=== PATIENT | male | born 1975 ===

== ENCOUNTER 2017-07-08 15:44 | Inpatient (IN) | payer OTHER ==
[2017-07-08] MEDS ORDERED: Morphine 4 mg/ml ISec IVP STA (16:02)
--- NOTE | 2017-07-08 16:07 | ED PDOC ---
Arrival/HPI - General Chief Complaint: Chest Pain Time Seen by Provider: 07/08/17 15:51 - History of Present Illness Narrative History of Present Illness (Text): 42 y/o M c PMHx pancreatitis p/w chest pain radiating to the back x 4 hours. Pain is severe, associated with nausea. Radiates to back. Constant. Patient states pain is similar to previous pancreatitis. Patient denies dyspnea or diaphoresis. Smokes PPD. Past Medical History - Infectious Disease Hx of Infectious Diseases: None - Psychiatric Hx Substance Use: No - Anesthesia Hx Anesthesia: No Family/Social History Family/Social History: No Known Family HX Smoking Status: Heavy Smoker > 10 Cigarettes Daily Hx Alcohol Use: Yes Frequency of alcohol use: Socially Hx Substance Use: No Substance used: marijuana Allergies/Home Meds Allergies/Adverse Reactions: Allergies No Known Allergies Allergy (Verified 07/08/17 15:59) Home Medications: Home Meds Medication Instructions Recorded Confirmed No Known Home Med 07/08/17 07/08/17 Review of Systems - Physician Review All systems were reviewed & negative as marked: Yes - Review of Systems Constitutional: absent: Fevers Respiratory: absent: SOB Physical Exam - Physical Exam Narrative Physical Exam (Text): Constitutional: Appears uncomfortable. Head: Normocephalic. Atraumatic. Eyes: PERRL. ENT: Moist mucous membranes. Neck: Supple. Cardiovascular: Regular rate. Chest: No tenderness. Respiratory: Clear to auscultation bilaterally. GI: Epigastric tenderness. Nondistended. Back: No CVA tenderness. No midline tenderness. Musculoskeletal: No tenderness or swelling of extremities. Skin: No rash. Neurologic: Alert, no focal deficit. Vital Signs Temp Pulse Resp BP Pulse Ox 07/08/17 16:22 105 H 21 132/91 H 100 07/08/17 15:53 98.0 F 90 18 129/92 H 100 Medical Decision Making ED Course and Treatment: EKG shows sinus rhythm, 90 bpm, Q waves anteriorly, prominent T waves in same, ST elevations Vi to V3, ST depressions in III, aVF. Patient's EKG concerning for STEMI, also considering dissection. Discussed case with Interventionalist integration analyst Dr. Richey who states he will take patient to cath. Patient will require dissection study first to rule out dissection. Morpine, Zofran administered initially. Heparin/aspirin withheld pending CT angio result. Patient admitted to mine laborer prior to CT angio result. - Lab Interpretations Lab Results: 07/08/17 16:00 07/08/17 16:00 Lab Results 07/08/17 16:00: Sodium 139, Potassium 3.8, Chloride 101, Carbon Dioxide 25, Anion Gap 17, BUN 9, Creatinine 0.9, Est GFR ( Amer) > 60, Est GFR (Non- Af Amer) > 60, Random Glucose 151 H, Calcium 9.9, Total Bilirubin 0.8, AST 35, ALT 35, Alkaline Phosphatase 71, Lactate Dehydrogenase 534, Total Creatine Kinase 103, Troponin I 0.08, Total Protein 8.2, Albumin 4.6, Globulin 3.6, Albumin/Globulin Ratio 1.3, Amylase 72, Lipase 100 07/08/17 16:00: PT 11.0, INR 1.01, APTT 26.4 07/08/17 16:00: WBC 16.8 H, RBC 4.64, Hgb 16.3, Hct 47.6, MCV 102.6, MCH 35.1 H , MCHC 34.2, RDW 12.3, Plt Count 268, MPV 9.6, Gran % 79.9 H, Lymph % (Auto) 14.6 L, [place] % (Auto) 4.6, Eos % (Auto) 0.7 L, Baso % (Auto) 0.2, Gran # 13.41 H , Lymph # 2.5, [place] # 0.8 H, Eos # 0.1, Baso # 0.04 07/08/17 15:34: Blood Type Pending, Antibody Screen Pending, BBK History Checked No verified bt - RAD Interpretation Radiology Orders: 07/08/17 16:03 ANGIOGRAPHY DISECTION PROTOCOL [CT] Stat 07/08/17 16:07 CHEST PORTABLE [RAD] Stat - Medication Orders Current Medication Orders: Discontinued Medications Morphine Sulfate (Morphine) 4 mg IVP STAT STA Stop: 07/08/17 16:03 Last Admin: 07/08/17 16:22 Dose: 4 mg KURTIS Pain Assessment Document 07/08/17 16:22 MS (Rec: 07/08/17 16:22 MS [id number]) Pain Reassessment Is this a pain reassessment? No Sleep Is patient sleeping during reassessment? No Presence of Pain Presence of Pain Yes Pain Scale Used Pain Scale Used Numeric Location Upper or Lower Upper Pain Location Body Site Chest Description Description Constant Intensity of Pain at present 10 Pain Behavior Moaning Crying Guarding Alleviating Factors/Management Medication Techniques IVP Administration Document 07/08/17 16:22 MS (Rec: 07/08/17 16:22 MS [id number]) Charges for Administration # of IVP Administrations 1 Ondansetron HCl (Zofran Inj) 8 mg IVP STAT STA Stop: 07/08/17 16:03 Last Admin: 07/08/17 16:23 Dose: 8 mg IVP Administration Document 07/08/17 16:23 MS (Rec: 07/08/17 16:23 MS [id number]) Charges for Administration # of IVP Administrations 1 Disposition/Present on Arrival - Present on Arrival Any Indicators Present on Arrival: No History of DVT/PE: No History of Uncontrolled Diabetes: No Urinary Catheter: No History of Decub. Ulcer: No History Surgical Site Infection Following: None - Disposition Have Diagnosis and Disposition been Completed?: Yes Diagnosis: Chest pain Disposition: HOSPITALIZED Disposition Time: 16:34 Patient Plan: Admission Condition: GUARDED
[2017-07-08 16:11] LABS: BASO # 0.04 K/mm3 (0.0-2.0); BASO % 0.2 % (0.0-3.0); EOS # 0.1 (0.0-0.7); EOS % 0.7 % (1.5-5.0); GRAN # 13.41 (1.4-6.5); GRAN % 79.9 % (50.0-68.0); HEMATOCRIT 47.6 % (42.0-52.0); LYMPH # 2.5 (1.2-3.4); LYMPH % 14.6 % (22.0-35.0); MEAN CELL VOLUME 102.6 fl (80.0-105.0); MEAN CORPUSCULAR HEMOGLOBIN 35.1 pg (25.0-35.0); MEAN CORPUSCULAR HGB CONC 34.2 g/dl (31.0-37.0); MEAN PLATELET VOLUME 9.6 fl (7.0-11.0); MONO # 0.8 (0.1-0.6); MONO % 4.6 % (1.0-6.0); RED CELL DISTRIBUTION WIDTH 12.3 % (11.5-14.5); WHITE BLOOD COUNT 16.8 10^3/ul (4.5-11.0)
[2017-07-08 16:19] LABS: ALB/GLOB RATIO 1.3 (1.1-1.8); ALKALINE PHOSPHATASE 71 U/L (38-126); ALT/SGPT 35 U/L (7-56); AMYLASE 72 U/L (35-125); AST/SGOT 35 U/L (17-59); BILIRUBIN,TOTAL 0.8 mg/dL (0.2-1.3); BLOOD UREA NITROGEN 9 mg/dL (7-21); CALCIUM 9.9 mg/dL (8.4-10.5); CARBON DIOXIDE 25 mmol/L (21-33); CHLORIDE 101 mmol/L (98-107); GFR AFRICAN-AMERICAN > 60; GLUCOSE,RANDOM 151 mg/dL (70-110); INR 1.01 (0.93-1.08); LIPASE 100 U/L (23-300); PARTIAL THROMBOPLASTIN TIME 26.4 Seconds (25.1-36.5); POTASSIUM 3.8 mmol/L (3.6-5.0); SODIUM 139 mmol/L (132-148); TOTAL PROTEIN 8.2 g/dL (5.8-8.3)
[2017-07-08] MEDS ORDERED: Iohexol 350mgl/ml 50 ML ONE (16:27)
[2017-07-08] MEDS ORDERED: Lidocaine 2% Inj (20ml) ONE (16:27)
[2017-07-08] MEDS ORDERED: Nitroglycerin 50mg in D5W 0 MG/0 ML BOTTLE IV ONE (16:28)
[2017-07-08] MEDS ORDERED: Iodixanol 320 MG/ML 100 ML BOTTLE IV ONE (16:28)
[2017-07-08] MEDS ORDERED: Iodixanol 320 MG/ML 200 ML BOTTLE IV ONE (16:28)
[2017-07-08 16:29] LABS: TROPONIN I 0.08 ng/mL
[2017-07-08] MEDS ORDERED: Midazolam 2 MG/2 ML VIAL ONE (16:49)
[2017-07-08] MEDS ORDERED: Morphine 2 mg/ml ISec IVP STA (16:53)
[2017-07-08] MEDS ORDERED: Morphine 2 mg/ml ISec ONE (16:54)
--- NOTE | 2017-07-08 16:54 | CT ---
PROCEDURE: CT Angiography Chest, Abdomen and Pelvis with and without intravenous contrast HISTORY: chest/epigastric pain radiating to back COMPARISON: None. TECHNIQUE: Contiguous axial images of the chest, abdomen and pelvis were obtained in the phase of aortic enhancement. A noncontrast enhanced CT of the chest was also obtained to evaluate for possible intramural thrombus. Coronal and sagittal reformats were generated. IV dose administered: 135 cc of Omni 350 Radiation dose: Total exam DLP = 1614 mGy-cm. This CT exam was performed using one or more of the following dose reduction techniques: Automated exposure control, adjustment of the mA and/or kV according to patient size, and/or use of iterative reconstruction technique. FINDINGS: CT ANGIOGRAPHY OF THE CHEST WITH & WITHOUT CONTRAST: AORTA (CHEST AND ABDOMEN): The thoracic and abdominal aorta are unremarkable, without aneurysm, dissection or rupture. No intramural thrombus identified in the thoracic aorta on the non-contrast ct of the chest. The celiac axis, superior mesenteric artery, inferior mesenteric artery and the renal arteries are widely patent. The pelvic arteries are unremarkable. LUNGS: Clear. No nodule, mass or consolidation. MEDIASTINUM: Unremarkable. Normal caliber aorta and pulmonary arterial trunk. No aortic dissection. Normal size heart. LYMPH NODES: Unremarkable. PLEURA: Unremarkable. No pneumothorax. No pleural fluid. BONES: Unremarkable. OTHER FINDINGS: None. CT ANGIOGRAPHY OF THE ABDOMEN AND PELVIS WITH CONTRAST: LIVER: Unremarkable. No gross lesion or ductal dilatation. GALLBLADDER AND BILE DUCTS: Unremarkable. PANCREAS: Unremarkable. No gross lesion or ductal dilatation. SPLEEN: Unremarkable. ADRENALS: Unremarkable. No mass. KIDNEYS AND URETERS: Unremarkable. No hydronephrosis. No solid mass. VASCULATURE: Unremarkable. No aortic aneurysm. STOMACH AND BOWEL: Unremarkable. No obstruction. No gross mural thickening. APPENDIX: Normal appendix. PERITONEUM: Unremarkable. No free fluid. No free air. LYMPH NODES: Unremarkable. No enlarged lymph nodes. BLADDER: Unremarkable. REPRODUCTIVE: Unremarkable. BONES: No acute fracture. OTHER FINDINGS: None. IMPRESSION: Negative study
--- NOTE | 2017-07-08 17:03 | RAD ---
HISTORY: code heart COMPARISON: No prior. FINDINGS: LUNGS: No active pulmonary disease. PLEURA: No significant pleural effusion identified, no pneumothorax apparent. CARDIOVASCULAR: Normal. OSSEOUS STRUCTURES: No significant abnormalities. VISUALIZED UPPER ABDOMEN: Normal. OTHER FINDINGS: None. IMPRESSION: No active disease.
--- NOTE | 2017-07-08 17:18 | CP.PCM.PN ---
<Hari Juarez - Last Filed: 07/08/17 17:11> Subjective - Date & Time of Evaluation Date of Evaluation: 07/08/17 Time of Evaluation: 16:04 - Subjective Subjective: Code Heart Note - Abdi Juarez PGY2 Code Heart called overhead at 4:00pm. Responded promptly to emergency room bed 13. Patient is a 42yo male with history of pancreatitis that presented c/o chest pain radiating to the back for the past 4 hours. He was immediately taken to radiology for CT Angiography to rule out dissection. EKG was reviewed and revealed ST elevations in V1-V3. Patient was subsequently taken to cardiac catherization. CT Angiography results were reviewed and was a negative study ( see full report). Patient was given Aspirin, Brilinta and heparin as per cardiology recommendations. Morphine 2mg was administered in addition to the 4mg he received in the ED due to chest pain. Stayed with patient throughout until cardiology, Dr. Richey arrived. Vitals were as follows: Temp: 98F, Blood pressure 132/91, Heart rate 105, O2 sat 100% on nasal cannula, respiratory rate 21 Objective - Vital Signs/Intake and Output Vital Signs (last 24 hours): Temp Pulse Resp BP Pulse Ox 98.0 F 105 H 21 132/91 H 100 07/08/17 15:53 07/08/17 16:22 07/08/17 16:22 07/08/17 16:22 07/08/17 16:22 - Labs Labs: 07/08/17 16:00 07/08/17 16:00 PT 11.0 SECONDS (9.4-12.5) 07/08/17 16:00 INR 1.01 (0.93-1.08) 07/08/17 16:00 APTT 26.4 Seconds (25.1-36.5) 07/08/17 16:00 - Head Exam Head Exam: ATRAUMATIC, NORMOCEPHALIC - Eye Exam Eye Exam: EOMI, PERRL - ENT Exam ENT Exam: Mucous Membranes Moist - Respiratory Exam Respiratory Exam: Clear to Ausculation Bilateral. absent: Rales, Rhonchi, Wheezes - Cardiovascular Exam Cardiovascular Exam: Tachycardia, RRR, +S1, +S2. absent: Gallop, JVD, Rubs - GI/Abdominal Exam GI & Abdominal Exam: Soft. absent: Distended, Firm, Guarding, Rigid, Tenderness , Rebound - Neurological Exam Neurological Exam: Alert, Awake, Oriented x3 - Psychiatric Exam Psychiatric exam: Anxious - Skin Skin Exam: Dry, Intact, Normal Color, Warm Assessment and Plan - Assessment and Plan (Free Text) Plan: 42yo male with history of pancreatitis presents c/o chest pain radiating to the back for the past 4 hours -EKG concerning for STEMI -CT Angio reviewed; negative study -ASA/Brilinta/Heparin -Morphine for chest pain -Taken emergently to liaison inspection laboratory assistant -Cardiology on board - Dr. Richey Patient seen and case discussed/reviewed with attending, Dr. Dubois <Negro Dubois - Last Filed: 07/08/17 17:55> Objective - Vital Signs/Intake and Output Vital Signs (last 24 hours): Temp Pulse Resp BP Pulse Ox 98.0 F 105 H 21 132/91 H 100 07/08/17 15:53 07/08/17 16:22 07/08/17 16:22 07/08/17 16:22 07/08/17 16:22 - Medications Medications: Current Medications Acetaminophen (Tylenol 325mg Tab) 650 mg PO Q4H PRN PRN Reason: Pain, Mild (1-3) Alprazolam (Xanax) 0.25 mg PO BID PRN PRN Reason: Anxiety Stop: 07/15/17 17:41 Aspirin (Ecotrin) 81 mg PO DAILY YO Atorvastatin Calcium (Lipitor) 80 mg PO DIN [facility] Docusate Sodium (Colace) 100 mg PO BID [facility] Sodium Chloride (Sodium Chloride 0.9%) 1,000 mls @ 100 mls/hr IV .Q10H YO Ondansetron HCl (Zofran Inj) 4 mg IV ONCE PRN PRN Reason: Nausea/Vomiting Ticagrelor (Brilinta) 90 mg PO BID YO Zolpidem Tartrate (Ambien) 5 mg PO HS PRN PRN Reason: Insomnia - Labs Labs: 07/08/17 16:00 07/08/17 16:00 PT 11.0 SECONDS (9.4-12.5) 07/08/17 16:00 INR 1.01 (0.93-1.08) 07/08/17 16:00 APTT 26.4 Seconds (25.1-36.5) 07/08/17 16:00 Attending/Attestation - Attestation I have personally seen and examined this patient.: Yes I have fully participated in the care of the patient.: Yes I have reviewed all pertinent clinical information, including history, physical exam and plan: Yes
[2017-07-08] MEDS ORDERED: Eptifibatide 20 mg/10mL Inj IVP ONE (17:37)
[2017-07-08 19:22] VITALS: BMI 31.4
--- NOTE | 2017-07-09 00:08 | CON ---
DATE: 07/08/2017 VASCULAR SURGEON CONSULTATION REQUESTING PHYSICIAN: Dr. Hernandez. CHIEF COMPLAINT: The patient presenting with severe chest pain, diaphoresis and CODE HEART was called. HISTORY OF PRESENT ILLNESS: Mr. Brunson is a 42-year-old male with a history of pancreatitis that presents with chest pain that radiated to his back for approximately 4 hours, pain was severe in nature. He has some nauseousness and vomiting and diaphoresis. The patient states that pain was similar to previous pancreatitis. The patient states that he is a smoker and occasionally uses alcohol. No past history of cardiac disease or lung disease, and as a teenager, he had an appendectomy. The patient states he takes no medications at home. No fever or chills. No abdominal pain. No diarrhea. PAST MEDICAL HISTORY: As above. ALLERGIES: HE HAS NO KNOWN ALLERGIES. CURRENT MEDICATIONS: Evaluated as per the nurse's intake form. SOCIAL HISTORY: The patient is a smoker approximately 10 cigarettes daily, does use alcohol socially and substance use is marijuana. REVIEW OF SYSTEMS: CONSTITUTIONAL: All negative. HEENT: All negative. RESPIRATORY: All negative. CARDIOVASCULAR: The patient presented with chest pain, diaphoresis. GASTROINTESTINAL: He had some nauseousness and vomiting. GENITOURINARY: All negative. MUSCULOSKELETAL: All negative. NEUROPSYCHIATRIC: All negative. HEMATOLOGIC: All negative. IMMUNOLOGIC: All negative. ENDOCRINE: All negative. INTEGRITY: All negative. PHYSICAL EXAMINATION: VITAL SIGNS: Note that his temperature is 98.0, his pulse is 90, respirations are 18, blood pressure is 129/92 and O2 saturation is 100% on room air. HEENT: Head is atraumatic and normocephalic. Eyes reactive to light. Ear, nose and throat seems to be within normal limits. NECK: Supple. No JVD. No thyroid enlargement. No lymph nodes. HEART: Has regular rate and rhythm. Normal S1 and S2. LUNGS: Reveal good breath sounds bilaterally. ABDOMEN: Soft. Positive bowel sounds. No organomegaly noted. GENITALIA AND RECTAL: Deferred. MUSCULOSKELETAL: No joint deformities. EXTREMITIES: Reveal no edema. NEUROLOGIC: He seems to be grossly intact. LABORATORY DATA: EKG revealed that there is sinus rhythm, 90 beats per minutes. Q-waves anteriorly, prominent T-waves in the same leads. ST-elevations in V1 through V3 and ST depressions in III and aVF. His white count is 16.8, hemoglobin is 16.3, hematocrit 47.6 with platelets of 268,000. Sodium is 139, potassium 3.8, chloride 101, CO2 of 25 with a BUN of 9, creatinine of 0.9 and glucose of 151. Chest x-ray reveals no infiltrate, and angiography CT revealed no aortic aneurysm. IMPRESSION: This patient has acute myocardial infarction and presented as a CODE HEART, taken to the cardiac catheterization and the patient had lesion in the left anterior descending and stent was placed in the proximal area. Also he has lesion in right coronary artery, but at this time, stents were not placed in that location. The patient, as per balance bridge inspector, had anterior wall myocardial infarction. PLAN: We will continue with O2 via nasal cannula. The patient is on Ambien p.r.n. He is getting Brilinta b.i.d. as well as Colace and Ecotrin. The patient is on Lipitor as well as IV fluids of normal saline, Tylenol, as well as Xanax. He is also getting Zofran p.r.n. for any nauseousness or vomiting. We will follow closely and treat aggressively along with the other consultants and the primary care doctor. Horace Dominguez MD
[2017-07-09] MEDS: Sodium Chloride 0.9% 1,000 ML IV SCH ×3 (04:45→23:27)
[2017-07-09 07:06] LABS: BASO # 0.02 K/mm3 (0.0-2.0); BASO % 0.2 % (0.0-3.0); EOS # 0.1 (0.0-0.7); EOS % 0.4 % (1.5-5.0); GRAN # 9.78 (1.4-6.5); GRAN % 79.4 % (50.0-68.0); HEMATOCRIT 44.3 % (42.0-52.0); LYMPH # 1.9 (1.2-3.4); LYMPH % 15.5 % (22.0-35.0); MEAN CELL VOLUME 104.5 fl (80.0-105.0); MEAN CORPUSCULAR HEMOGLOBIN 34.7 pg (25.0-35.0); MEAN CORPUSCULAR HGB CONC 33.2 g/dl (31.0-37.0); MONO # 0.6 (0.1-0.6); MONO % 4.5 % (1.0-6.0); RED CELL DISTRIBUTION WIDTH 12.7 % (11.5-14.5); WHITE BLOOD COUNT 12.3 10^3/ul (4.5-11.0)
[2017-07-09 07:28] LABS: ALB/GLOB RATIO 1.3 (1.1-1.8); ALKALINE PHOSPHATASE 57 U/L (38-126); ALT/SGPT 77 U/L (7-56); AST/SGOT 433 U/L (17-59); BILIRUBIN,TOTAL 1.4 mg/dL (0.2-1.3); BLOOD UREA NITROGEN 8 mg/dL (7-21); CALCIUM 9.2 mg/dL (8.4-10.5); CARBON DIOXIDE 27 mmol/L (21-33); CHLORIDE 108 mmol/L (98-107); GFR AFRICAN-AMERICAN > 60; GLUCOSE,RANDOM 101 mg/dL (70-110); SODIUM 140 mmol/L (132-148); TOTAL PROTEIN 6.6 g/dL (5.8-8.3)
--- NOTE | 2017-07-09 08:54 | RAD ---
HISTORY: f/u COMPARISON: 07/08/2017 FINDINGS: LUNGS: No active pulmonary disease. PLEURA: No significant pleural effusion identified, no pneumothorax apparent. CARDIOVASCULAR: Normal. OSSEOUS STRUCTURES: No significant abnormalities. VISUALIZED UPPER ABDOMEN: Normal. OTHER FINDINGS: None. IMPRESSION: No active disease.
--- NOTE | 2017-07-09 10:00 | CARD ---
APPROVED REPORT EKG Measurement Heart [id number] <Conclusion> Sinus rhythm Anteroseptal infarct, probably acute T wave abnormality, consider inferior ischemia ACUTE UT Abnormal ECG
--- NOTE | 2017-07-09 11:01 | CP.CCUPN ---
<Quan Pena - Last Filed: 07/09/17 10:50> CCU Subjective - Physician Review Events Since Last Encounter (Free Text): 07/09/17 10:[address] Crandall Pt seen and examined at bedside. No acute events overnight. Denies any CP/SOB. no F/C. No N/V/D. No Abd pain. Tolerating diet. no new complaints. CCU Objective - Vital Signs / Intake & Output Intake and Output (Last 8hrs): Intake & Output 07/08/17 07/09/17 07/09/17 22:59 06:59 14:59 Intake Total 1200 Output Total 600 Balance 600 Weight 183 lb Intake: IV 1200 Bilateral Antecubital 1200 Oral 0 Output: Urine 600 Urine, Voided 600 Stool 0 - Physical Exam Head: Positive for: Atraumatic, Normocephalic Pupils: Positive for: PERRL Extroacular Muscles: Positive for: EOMI Conjunctiva: Positive for: Normal Mouth: Positive for: Moist Mucous Membranes Neck: Positive for: Normal Range of Motion Respiratory/Chest: Positive for: Clear to Auscultation, Good Air Exchange. Negative for: Respiratory Distress, Accessory Muscle Use, Wheezes, Decreased Breath Sounds Cardiovascular: Positive for: Regular Rate and Rhythm, Normal S1, S2. Negative for: Irregular Rhythm, Tachycardic Abdomen: Positive for: Normal Bowel Sounds. Negative for: Tenderness, Distention, Peritoneal Signs, Rebound, Guarding Upper Extremity: Positive for: Normal Inspection, Normal ROM, NORMAL PULSES. Negative for: Edema Lower Extremity: Positive for: Normal Inspection, NORMAL PULSES. Negative for: Edema, CALF TENDERNESS Neurological: Positive for: GCS=15, CN II-XII Intact, Speech Normal Skin: Positive for: Warm, Dry, Normal Color. Negative for: Rashes Psychiatric: Positive for: Alert, Oriented x 3 - Medications Active Medications: Active Medications Generic Name Dose Route Start Last Admin Trade Name Freq PRN Reason Stop Dose Admin Acetaminophen 650 mg 07/08/17 17:40 Tylenol 325mg Tab PO Q4H PRN Pain, Mild (1-3) Alprazolam 0.25 mg 07/08/17 17:40 07/09/17 10:17 Xanax PO 07/15/17 17:41 0.25 mg BID PRN Administration Anxiety Aspirin 81 mg 07/09/17 10:00 07/09/17 09:40 Ecotrin PO 81 mg DAILY YO Administration Atorvastatin Calcium 80 mg 07/09/17 17:00 Lipitor PO DIN YO Docusate Sodium 100 mg 07/08/17 18:00 07/09/17 09:40 Colace PO 100 mg BID YO Administration Sodium Chloride 1,000 mls @ 100 mls/hr 07/08/17 17:45 07/09/17 04:45 Sodium Chloride 0.9% IV 100 mls/hr .Q10H YO Administration Metoprolol Tartrate 25 mg 07/09/17 17:00 Lopressor PO BRKDIN YO Ondansetron HCl 4 mg 07/08/17 17:40 Zofran Inj IV ONCE PRN Nausea/Vomiting Ticagrelor 90 mg 07/08/17 18:00 07/09/17 09:40 Brilinta PO 90 mg BID YO Administration Zolpidem Tartrate 5 mg 07/08/17 17:40 Ambien PO HS PRN Insomnia - Patient Studies Lab Studies: Lab Studies 07/09/17 07/09/17 Range/Units 06:00 06:00 WBC 12.3 H D (4.5-11.0) 10^3/ul RBC 4.24 (3.5-6.1) 10^6/uL Hgb 14.7 (14.0-18.0) g/dL Hct 44.3 (42.0-52.0) % MCV 104.5 (80.0-105.0) fl MCH 34.7 (25.0-35.0) pg MCHC 33.2 (31.0-37.0) g/dl RDW 12.7 (11.5-14.5) % Plt Count 216 (120.0-450.0) 10^3/uL MPV 10.0 (7.0-11.0) fl Gran % 79.4 H (50.0-68.0) % Lymph % (Auto) 15.5 L (22.0-35.0) % Duval % (Auto) 4.5 (1.0-6.0) % Eos % (Auto) 0.4 L (1.5-5.0) % Baso % (Auto) 0.2 (0.0-3.0) % Gran # 9.78 H (1.4-6.5) Lymph # 1.9 (1.2-3.4) Duval # 0.6 (0.1-0.6) Eos # 0.1 (0.0-0.7) Baso # 0.02 (0.0-2.0) K/mm3 Sodium 140 (132-148) mmol/L Potassium 4.0 (3.6-5.0) mmol/L Chloride 108 H (98-107) mmol/L Carbon Dioxide 27 (21-33) mmol/L Anion Gap 10 (10-20) BUN 8 (7-21) mg/dL Creatinine 0.8 (0.8-1.5) mg/dl Est GFR ( Amer) > 60 Est GFR (Non-Af Amer) > 60 Random Glucose 101 (70-110) mg/dL Calcium 9.2 (8.4-10.5) mg/dL Total Bilirubin 1.4 H (0.2-1.3) mg/dL AST 433 H D (17-59) U/L ALT 77 H (7-56) U/L Alkaline Phosphatase 57 (38-126) U/L Total Protein 6.6 (5.8-8.3) g/dL Albumin 3.7 (3.0-4.8) g/dL Globulin 2.9 gm/dL Albumin/Globulin Ratio 1.3 (1.1-1.8) Laboratory Results - last 24 hr 07/09/17 07/09/17 06:00 06:00 WBC 12.3 H D RBC 4.24 Hgb 14.7 Hct 44.3 MCV 104.5 MCH 34.7 MCHC 33.2 RDW 12.7 Plt Count 216 MPV 10.0 Gran % 79.4 H Lymph % (Auto) 15.5 L Duval % (Auto) 4.5 Eos % (Auto) 0.4 L Baso % (Auto) 0.2 Gran # 9.78 H Lymph # 1.9 Duval # 0.6 Eos # 0.1 Baso # 0.02 Sodium 140 Potassium 4.0 Chloride 108 H Carbon Dioxide 27 Anion Gap 10 BUN 8 Creatinine 0.8 Est GFR ( Amer) > 60 Est GFR (Non-Af Amer) > 60 Random Glucose 101 Calcium 9.2 Total Bilirubin 1.4 H AST 433 H D ALT 77 H Alkaline Phosphatase 57 Total Protein 6.6 Albumin 3.7 Globulin 2.9 Albumin/Globulin Ratio 1.3 EKG/Cardiology Studies: Cardiology / EKG Studies 07/08/17 15:50 EKG [ELECTROCARDIOGRAM] Stat Comment: Reason For Exam: CHEST PAIN Assessment/Plan - Assessment and Plan (Free Text) Assessment: 42yo M here s/p PCI secondary to Acute LA. Taken to CATH on 07/08 and stent placed in proximal LAD. No complications post-operatively. Found to have another lesion on CATH and was instructed to follow up as out-patient. 1. Acute LA S/p Cardiac CATH with stent placed in proximal LAD. Lesion in right coronary - patient to follow up as out-patient Cardiology following f/u troponin f/u Hb A1C f/u ECHO Metoprolol Lipitor Brilinta Aspirin Tolerating heart healthy diet 2. PPx Protonix SCDs Discussed case with Dr. Karley Pena PGY1 <Gallo Crandall - Last Filed: 07/09/17 11:16> CCU Objective - Vital Signs / Intake & Output Intake and Output (Last 8hrs): Intake & Output 07/08/17 07/09/17 07/09/17 22:59 06:59 14:59 Intake Total 1200 Output Total 600 Balance 600 Weight 183 lb Intake: IV 1200 Bilateral Antecubital 1200 Oral 0 Output: Urine 600 Urine, Voided 600 Stool 0 - Medications Active Medications: Active Medications Generic Name Dose Route Start Last Admin Trade Name Freq PRN Reason Stop Dose Admin Acetaminophen 650 mg 07/08/17 17:40 Tylenol 325mg Tab PO Q4H PRN Pain, Mild (1-3) Alprazolam 0.25 mg 07/08/17 17:40 07/09/17 10:17 Xanax PO 07/15/17 17:41 0.25 mg BID PRN Administration Anxiety Aspirin 81 mg 07/09/17 10:00 07/09/17 09:40 Ecotrin PO 81 mg DAILY YO Administration Atorvastatin Calcium 80 mg 07/09/17 17:00 Lipitor PO DIN YO Docusate Sodium 100 mg 07/08/17 18:00 07/09/17 09:40 Colace PO 100 mg BID YO Administration Sodium Chloride 1,000 mls @ 100 mls/hr 07/08/17 17:45 07/09/17 04:45 Sodium Chloride 0.9% IV 100 mls/hr .Q10H YO Administration Metoprolol Tartrate 25 mg 07/09/17 17:00 Lopressor PO BRKDIN YO Ondansetron HCl 4 mg 07/08/17 17:40 Zofran Inj IV ONCE PRN Nausea/Vomiting Pantoprazole Sodium 40 mg 07/10/17 06:00 Protonix Ec Tab PO 0600 YO Ticagrelor 90 mg 07/08/17 18:00 07/09/17 09:40 Brilinta PO 90 mg BID YO Administration Zolpidem Tartrate 5 mg 07/08/17 17:40 Ambien PO HS PRN Insomnia - Patient Studies Lab Studies: Lab Studies 07/09/17 07/09/17 Range/Units 06:00 06:00 WBC 12.3 H D (4.5-11.0) 10^3/ul RBC 4.24 (3.5-6.1) 10^6/uL Hgb 14.7 (14.0-18.0) g/dL Hct 44.3 (42.0-52.0) % MCV 104.5 (80.0-105.0) fl MCH 34.7 (25.0-35.0) pg MCHC 33.2 (31.0-37.0) g/dl RDW 12.7 (11.5-14.5) % Plt Count 216 (120.0-450.0) 10^3/uL MPV 10.0 (7.0-11.0) fl Gran % 79.4 H (50.0-68.0) % Lymph % (Auto) 15.5 L (22.0-35.0) % Duval % (Auto) 4.5 (1.0-6.0) % Eos % (Auto) 0.4 L (1.5-5.0) % Baso % (Auto) 0.2 (0.0-3.0) % Gran # 9.78 H (1.4-6.5) Lymph # 1.9 (1.2-3.4) Duval # 0.6 (0.1-0.6) Eos # 0.1 (0.0-0.7) Baso # 0.02 (0.0-2.0) K/mm3 Sodium 140 (132-148) mmol/L Potassium 4.0 (3.6-5.0) mmol/L Chloride 108 H (98-107) mmol/L Carbon Dioxide 27 (21-33) mmol/L Anion Gap 10 (10-20) BUN 8 (7-21) mg/dL Creatinine 0.8 (0.8-1.5) mg/dl Est GFR ( Amer) > 60 Est GFR (Non-Af Amer) > 60 Random Glucose 101 (70-110) mg/dL Calcium 9.2 (8.4-10.5) mg/dL Total Bilirubin 1.4 H (0.2-1.3) mg/dL AST 433 H D (17-59) U/L ALT 77 H (7-56) U/L Alkaline Phosphatase 57 (38-126) U/L Total Protein 6.6 (5.8-8.3) g/dL Albumin 3.7 (3.0-4.8) g/dL Globulin 2.9 gm/dL Albumin/Globulin Ratio 1.3 (1.1-1.8) Laboratory Results - last 24 hr 07/09/17 07/09/17 06:00 06:00 WBC 12.3 H D RBC 4.24 Hgb 14.7 Hct 44.3 MCV 104.5 MCH 34.7 MCHC 33.2 RDW 12.7 Plt Count 216 MPV 10.0 Gran % 79.4 H Lymph % (Auto) 15.5 L Duval % (Auto) 4.5 Eos % (Auto) 0.4 L Baso % (Auto) 0.2 Gran # 9.78 H Lymph # 1.9 Duval # 0.6 Eos # 0.1 Baso # 0.02 Sodium 140 Potassium 4.0 Chloride 108 H Carbon Dioxide 27 Anion Gap 10 BUN 8 Creatinine 0.8 Est GFR ( Amer) > 60 Est GFR (Non-Af Amer) > 60 Random Glucose 101 Calcium 9.2 Total Bilirubin 1.4 H AST 433 H D ALT 77 H Alkaline Phosphatase 57 Total Protein 6.6 Albumin 3.7 Globulin 2.9 Albumin/Globulin Ratio 1.3 EKG/Cardiology Studies: Cardiology / EKG Studies 07/08/17 15:50 EKG [ELECTROCARDIOGRAM] Stat Comment: Reason For Exam: CHEST PAIN Assessment/Plan - Assessment and Plan (Free Text) Assessment: Patient seen and examined, agree with residents note, with following additions/ exceptions: Patient is 42yo male with EtOH abuse, smoker, admitted with acute LA s/p PCI with stent placed in prox LAD. Follow up cardiology, cont with ASA, Brillinta, Statin, BB. Follow up ECHO, HgbA1C. Stable transfer to telemetry.
--- NOTE | 2017-07-09 11:09 | PN ---
DATE: 07/09/2017 CARDIOLOGY FOLLOWUP NOTE HISTORY OF PRESENT ILLNESS: The patient is a 42-year-old male who is status post acute anterior wall myocardial infarction and is status post emergency PTCA and stent of an LAD. He was found to have two-vessel CAD in the LAD as well as the RCA. Currently, the patient is in bed comfortable, without chest pain and without shortness of breath. PHYSICAL EXAMINATION: VITAL SIGNS: Blood pressure is 116/69 and the heart rates in the 80s. NECK: Negative JVD. LUNGS: Without rales. HEART: Reveals S1 and S2. EXTREMITIES: Without edema. DIAGNOSTIC DATA: EKG shows improved ST changes. LABORATORY DATA: Hemoglobin is 14. Chemistries: BUN and creatinine are 8 and 0.8. The liver function bumped up to 433. Troponins was 0.08. IMPRESSION: 1. Status post acute anterior wall myocardial infarction. 2. Two-vessel coronary artery disease. 3. History of smoking. 4. History of pancreatitis secondary to alcoholism. PLAN: Given these findings, we will continue the aspirin and Brilinta. Beta-blockers have been ordered. We will have the patient out of bed today. We will begin ambulation and can be transferred to telemetry. Hang Andrew MD
--- NOTE | 2017-07-09 16:40 | CARD ---
APPROVED REPORT EXAM: Two-dimensional and M-mode echocardiogram with Doppler and color Doppler. INDICATION S/P FL 2D DIMENSIONS Left Atrium (2D)3.4 (1.6-4.0cm)IVSd1.0 (0.7-1.1cm) LVDd4.6 (3.9-5.9cm)PWd1.0 (0.7-1.1cm) LVEF (%)35.0 (>50%) M-Mode DIMENSIONS Aortic Root3.30 (2.2-3.7cm)Aortic Cusp Exc.2.00 (1.5-2.0cm) Aortic Valve AoV Peak Coyykirx743.0cm/Shira Peak GR.6mmHg Mitral Valve MV E Eizokanv37.8cm/sMV A Nqptmbvg74.2cm/sE/A ratio1.4 TDI Lateral E' Peak V11.50cm/sMedial E' Peak V9.94cm/sE/Lateral E'8.1 E/Medial E'9.3 Pulmonary Valve PV Peak Cggkkiwi54.6cm/sPV Peak Grad.2mmHg Tricuspid Valve TR Peak Ymuswiqe367ea/sRAP SLLWWVZI59hpFbRC Peak Gr.22mmHg [id number] LEFT VENTRICLE The left ventricle is normal size. There is normal left ventricular wall thickness. The systolic function is severely impaired. Apical and septal hypokinesis The left ventricular diastolic function is normal. No left ventricle thrombus noted on this study. RIGHT VENTRICLE The right ventricle is normal size. There is normal right ventricular wall thickness. The right ventricular systolic function is normal. ATRIA The left atrium size is normal. The right atrium size is normal. AORTIC VALVE The aortic valve is normal in structure. No aortic regurgitation is present. MITRAL VALVE The mitral valve is normal in structure. Mitral regurgitation is trace. TRICUSPID VALVE The tricuspid valve is normal in structure. GREAT VESSELS The aortic root is normal in size. The IVC is normal in size and collapses >50% with inspiration. PERICARDIAL EFFUSION There is a trace loculated anterior pericardial effusion. <Conclusion> The left ventricle is normal size. There is normal left ventricular wall thickness. The systolic function is severely impaired. Apical and septal hypokinesis No left ventricle thrombus noted on this study.
--- NOTE | 2017-07-09 18:49 | CARD ---
APPROVED REPORT EKG Measurement Heart [id number] [place] [id number] <Conclusion> Sinus rhythm with marked sinus arrhythmia Anteroseptal infarct, possibly acute ACUTE [place] Abnormal ECG
[2017-07-10] MEDS ORDERED: Pantoprazole 40 mg EC Tab PO SCH (06:00)
[2017-07-10 08:39] VITALS: BP 115/86
[2017-07-10 09:22] VITALS: TEMP 98.4
[2017-07-10 10:35] VITALS: PULSE 94; RESP 58; O2SAT 97
--- NOTE | 2017-07-10 10:47 | PN ---
DATE: 07/10/2017 CARDIOLOGY FOLLOWUP NOTE SUBJECTIVE: The patient is ambulating in the unit without symptoms. PHYSICAL EXAMINATION: VITAL SIGNS: Blood pressure is 115/86 and the heart rate is in the 90s. NECK: Negative JVD. LUNGS: Without rales. HEART: Reveals S1 and S2. EXTREMITIES: Without edema. LABORATORY DATA: Hemoglobin is 14.7. Chemistries: BUN and creatinine are unremarkable. Liver function tests remain elevated. IMPRESSION 1. Status post anterior wall myocardial infarction. 2. Status post emergency percutaneous transluminal coronary angioplasty and stent of an left anterior descending. 3. Multivessel coronary artery disease. 4. Hypercholesterolemia. PLAN: 1. Given these findings, the patient is stable. He can be discharged today. He needs to go home on aspirin, Brilinta, Lipitor as well as Lopressor and baby aspirin. 2. The patient will return in 48 hours for PTCA and stent of an RCA. Instructions and follow up have been given to the patient in detail. Hang Andrew MD
--- NOTE | 2017-07-12 07:22 | CARD ---
APPROVED REPORT Procedure(s) performed: Complete Heart Catheterization PTCA with Stenting HISTORY : The patient is a current smoker . INDICATION The indication(s) include : STEMI (>0 to less than or equal to 6 hours). CASE TECHNIQUE The patient was brought emergently to the Cardiac Catheterization Laboratory in a fasting state and was prepped and draped in a sterile manner. The right femoral groin was infiltrated with 2% Lidocaine subcutaneous anesthesia. A 6 Fr x 11 cm Teresa sheath was inserted using coronary diagnostic catheters. The left coronary system was accessed and visualized with a Guided catheter. The right coronary system was accessed and visualized with a Diagnostic catheter. The left ventricle was accessed and visualized with a Diagnostic catheter. Left ventricular/Aortic Valve gradient assessed on pullback. Hemostasis was obtained with manual pressure following sheath removal without any complications. The patient tolerated the procedure well and there were no complications associated with the procedure. Vessel Analysis The patient's coronary anatomy is right dominant. The left main coronary artery is a medium size vessel without significant stenosis. The left main bifurcates to the left anterior descending and circumflex. The left anterior descending artery is a large size vessel . There is a 100% stenosis in the proximal segment. The circumflex artery is a medium size vessel . There is a 30% stenosis in the mid segment. The right coronary artery is a medium size vessel . There is a 80% stenosis in the proximal segment. Left Ventricle The left ventricle is normal in size with mild decreased contractility. The left ventricular ejection fraction is estimated to be 50%. There was no gradient across the aortic valve upon pullback. PCI Technique Lesion Anticoagulation was achieved with Integrilin, Heparin. Percutaneous coronary intervention was performed on the proximal left anterior descending artery segment. The lesion stenosis prior to intervention was 100% with LYLA 0 flow. A 6 Fr XB 3.5 Guide Catheter was used to engage the lm ostium. BALLOON DILATION A Balloon catheter 2.5 x 12 mm Sprinter RX was inserted and inflated up to 8.00atm for 15seconds. STENT DEPLOYMENT A drug-eluting stent 2.75 x 30 mm Resolute MAXIM was inserted and inflated up to 16.00atm for 15seconds. Final angiography reveals 0 % stenosis with LYLA 3 flow. Conclusion Acute LA of LAD Two vessel CAD. Mild depressed left ventricular function. Sucessful PCI/Stent of LAD with MAXIM. Recommendations Smoking Cessation Cardiac Rehabilitation Referral Aggressive Medical TherapyCardiac Risk Reduction Program Weight Loss Reduction Program Stage PCI of RCA
== END 2017-07-10 13:02 | disposition home or self-care (01) | DRG 247 ==
LOC: ED 15:44 → CATH 16:34 → CCU 18:24
PROVIDERS: ADMIT Internal Medicine Cardiovascular Disease; ATTEND Internal Medicine Cardiovascular Disease
PROC: 027034Z Dilation of Coronary Artery, One Artery with Drug-eluting Intraluminal Device, Percutaneous Approach (ICD-10-PCS; principal; 2017-07-08)
PROC: 4A023N7 Measurement of Cardiac Sampling and Pressure, Left Heart, Percutaneous Approach (ICD-10-PCS; 2017-07-08)
PROC: B2111ZZ Fluoroscopy of Multiple Coronary Arteries using Low Osmolar Contrast (ICD-10-PCS; 2017-07-08)
PROC: B2151ZZ Fluoroscopy of Left Heart using Low Osmolar Contrast (ICD-10-PCS; 2017-07-08)
DX: I21.02 ST elevation (STEMI) myocardial infarction involving left anterior descending coronary artery (principal); E78.00 Pure hypercholesterolemia, unspecified; I25.10 Atherosclerotic heart disease of native coronary artery without angina pectoris; F17.200 Nicotine dependence, unspecified, uncomplicated; Z87.19 Personal history of other diseases of the digestive system; Z90.49 Acquired absence of other specified parts of digestive tract; R40.2413 Glasgow coma scale score 13-15, at hospital admission

== ENCOUNTER 2017-07-13 06:00 | Day surgery (SDC) | payer OTHER ==
[2017-07-13] MEDS ORDERED: Lidocaine 2% Inj (20ml) ONE ×2 (06:41→07:38)
[2017-07-13] MEDS ORDERED: Iodixanol 320 MG/ML 100 ML BOTTLE IV ONE (06:42)
[2017-07-13] MEDS ORDERED: Iodixanol 320 MG/ML 200 ML BOTTLE IV ONE (06:42)
[2017-07-13] MEDS ORDERED: Iohexol 350mgl/ml 50 ML ONE (06:42)
[2017-07-13 06:44] LABS: BASO # 0.04 K/mm3 (0.0-2.0); BASO % 0.5 % (0.0-3.0); EOS # 0.3 (0.0-0.7); EOS % 3.1 % (1.5-5.0); GRAN # 5.69 (1.4-6.5); HEMATOCRIT 41.1 % (42.0-52.0); LYMPH # 1.4 (1.2-3.4); LYMPH % 17.5 % (22.0-35.0); MEAN CORPUSCULAR HEMOGLOBIN 34.6 pg (25.0-35.0); MEAN CORPUSCULAR HGB CONC 33.6 g/dl (31.0-37.0); MEAN PLATELET VOLUME 10.6 fl (7.0-11.0); MONO # 0.6 (0.1-0.6); MONO % 7.9 % (1.0-6.0); RED CELL DISTRIBUTION WIDTH 12.6 % (11.5-14.5)
[2017-07-13] MEDS ORDERED: Phenylephrine 10 mg/ml Inj ONE (06:46)
[2017-07-13 06:58] LABS: INR 1.2 (0.93-1.08); PARTIAL THROMBOPLASTIN TIME 27.3 Seconds (25.1-36.5)
[2017-07-13] MEDS ORDERED: Midazolam 2 MG/2 ML VIAL ONE ×2 (07:16→07:38)
[2017-07-13] MEDS ORDERED: Famotidine 20mg/50ml 20 MG/50 ML BAG IVPB ONE (07:21)
[2017-07-13] MEDS ORDERED: DiphenhydrAMINE 50 mg/ml Inj ONE (07:21)
[2017-07-13 07:25] LABS: BLOOD UREA NITROGEN 13 mg/dL (7-21); CALCIUM 9.8 mg/dL (8.4-10.5); CARBON DIOXIDE 26 mmol/L (21-33); CHLORIDE 105 mmol/L (98-107); CHOLESTEROL 123 mg/dL (130-200); GFR AFRICAN-AMERICAN > 60; GLUCOSE,RANDOM 97 mg/dL (70-110); POTASSIUM 4.1 mmol/L (3.6-5.0); SODIUM 142 mmol/L (132-148)
[2017-07-13 07:30] VITALS: O2SAT 99
[2017-07-13] MEDS ORDERED: Sodium Chloride 0.9% 1,000 ML IV SCH (08:30)
[2017-07-13] MEDS ORDERED: Bacitracin 500 Units/gm Oint Foilpak UD ONE (10:13)
--- NOTE | 2017-07-13 11:59 | CARDCATH ---
PROCEDURE DATE: 07/13/2017 CARDIAC CATHETERIZATION AND PERCUTANEOUS TRANSLUMINAL CORONARY ANGIOPLASTY HISTORY: The patient is a 42-year-old male who presented with an anterior wall myocardial infarction last week who was found to have two-vessel CAD. He was brought back here for PTCA of the RCA as well as evaluation of stent deployment by IVUS in the LAD. The left femoral artery was cannulated with a 6-Faroese sheath. There were no complications. PROCEDURE: I performed moderate sedation which included the presence of an independent trained observer that assisted in monitoring the patient's level of consciousness and physiologic status. After administration of fentanyl and Versed, my intra service time was 15 minutes. FINDINGS: The findings on catheterization revealed a left main artery was unremarkable. The stent in the proximal LAD was patent. The RCA was a dominant vessel. The previously documented 80% stenoses in the RCA has now resolved representing spasm. The patient was started on intravenous Angiomax. The guiding catheter was placed in the ostium of the left main artery. IVUS was performed of the stent that was placed. There was suboptimal apposition of the of the 2.75 stent to the coronary wall. A 3.5 noncompliant balloon was utilized to post dilate the stents. Repeat coronary arteriography revealed improvement of stent/wall apposition. The patient tolerated the procedure well. Manual compression was used to close the femoral artery site. IMPRESSION: In summary, the procedure revealed a patent stent in the proximal left anterior descending. 1. Resolution of the right coronary artery lesion which likely represents spasm which may have improved since the patient stopped smoking 2. Percutaneous transluminal coronary angioplasty of a suboptimal apposition of the stent into the coronary wall. PLAN: Given these findings, the patient will need to continue to cease smoking, he will need to continue on aspirin and Brilinta for at least a year. Hang Andrew MD
--- NOTE | 2017-07-13 17:28 | CARD ---
APPROVED REPORT EKG Measurement Heart [id number] [place] 150P42 [id number] <Conclusion> Normal sinus rhythm Anteroseptal infarct, possibly acute T wave abnormality, consider lateral ischemia ACUTE [place] Abnormal ECG
[2017-07-14 06:37] VITALS: BP 127/78; PULSE 69; RESP 20; TEMP 98.3
[2017-07-14 06:43] LABS: BASO # 0.03 K/mm3 (0.0-2.0); BASO % 0.3 % (0.0-3.0); EOS # 0.1 (0.0-0.7); GRAN # 6.98 (1.4-6.5); HEMATOCRIT 41.2 % (42.0-52.0); LYMPH # 2.1 (1.2-3.4); LYMPH % 20.8 % (22.0-35.0); MEAN CELL VOLUME 104.3 fl (80.0-105.0); MEAN CORPUSCULAR HEMOGLOBIN 34.7 pg (25.0-35.0); MEAN CORPUSCULAR HGB CONC 33.3 g/dl (31.0-37.0); MONO # 0.8 (0.1-0.6); MONO % 7.9 % (1.0-6.0); RED CELL DISTRIBUTION WIDTH 12.4 % (11.5-14.5)
[2017-07-14 06:51] LABS: BLOOD UREA NITROGEN 15 mg/dL (7-21); CALCIUM 9.4 mg/dL (8.4-10.5); CARBON DIOXIDE 26 mmol/L (21-33); CHLORIDE 107 mmol/L (98-107); GFR AFRICAN-AMERICAN > 60; GLUCOSE,RANDOM 91 mg/dL (70-110); POTASSIUM 3.9 mmol/L (3.6-5.0); SODIUM 141 mmol/L (132-148)
--- NOTE | 2017-07-14 11:33 | PN ---
DATE: 07/14/2017 CARDIOLOGY FOLLOWUP SUBJECTIVE: The patient is status post dilatation of the stent in the LAD after investigation. The patient is asymptomatic. PHYSICAL EXAMINATION: VITAL SIGNS: Blood pressure 127/78, heart rate is in the 60s. NECK: Negative JVD. LUNGS: Without rales. HEART: With S1, S2. EXTREMITIES: Without edema. The left groin site is stable. LABORATORY DATA: BUN and creatinine are unremarkable. The hemoglobin is 13.7. IMPRESSION: 1. Stable post percutaneous transluminal coronary angioplasty of the left anterior descending. 2. History of anterior wall myocardial infarction. 3. Peripheral vascular disease. 4. Recent anterior wall myocardial infarction. PLAN: Given these findings, the patient can be discharged on aspirin and Brilinta as well as statin therapy. I have discussed the need to stop smoking with the patient in detail. Follow up instructions have been given to the patient. Hang Andrew MD
--- NOTE | 2017-07-14 21:55 | CARD ---
APPROVED REPORT EKG Measurement Heart [id number] [place] 142P39 [id number] <Conclusion> Normal sinus rhythm Anteroseptal infarct, possibly acute ACUTE [place] Abnormal ECG
== END 2017-07-14 11:11 | disposition home or self-care (01) ==
LOC: CATH 06:00 → 2RSO 08:32 → CATH 07-14 11:11
PROVIDERS: ATTEND Internal Medicine Cardiovascular Disease
DX: I25.10 Atherosclerotic heart disease of native coronary artery without angina pectoris (principal); I21.9 Acute myocardial infarction, unspecified; I73.9 Peripheral vascular disease, unspecified
CPT/HCPCS: 36415 ×2; 80048 ×2; 80061; 85025 ×2; 85610; 85730; 86850; 86900; 92920; 92978; 93005 ×2; 99152; 99153; C1725; C1753; C1769 ×2; C1887; C2629; J0583; J1200; J1644; J2250; J2930; J3010; J7030; J7040; Q9967

== ENCOUNTER 2018-02-27 21:30 | Inpatient (IN) | payer OTHER ==
[2018-02-27] MEDS ORDERED: Sodium Chloride 0.9% 1,000 ML IV STA (21:53)
--- NOTE | 2018-02-27 21:53 | ED PDOC ---
Arrival/HPI - General Chief Complaint: Abdominal Pain Time Seen by Provider: 02/27/18 21:39 Historian: Patient - History of Present Illness Narrative History of Present Illness (Text): 02/27/18 21:50 Percy Brunson is a 43 year old male, whose past medical history includes an appendectomy and Coronary Artery Disease, who presents to the Emergency Department accompanied by spouse complaining of abdominal pain since yesterday. Patient states he began experiencing lower abdominal pressure yesterday which gradually worsened throughout today. Patient reports associated dysuria with no relief after urinating. Patient notes he developed a fever tonight at home, max temp. at 101.9 F. Patient reports he has been having on and off vague abdominal pain with nausea for the past 2 weeks. Patient notes decreased PO intake and some testicular discomfort. Patient denies back pain, chest pain, nausea, vomiting, diarrhea, or any other complaints at present time. Time/Duration: 24 hours (onset last night) Symptom Onset: Gradual Symptom Course: Unchanged Quality: Pressure Activities at Onset: Light Context: Home Past Medical History - Provider Review Nursing Documentation Reviewed: Yes - Travel History Have you recently traveled outside [place] w/in the past 3 mons?: No - Infectious Disease Hx of Infectious Diseases: None - Cardiac Hx Cardiac Disorders: Yes Hx [place]: Yes Hx Hypertension: Yes - Pulmonary Hx Respiratory Disorders: No - Neurological Hx Neurological Disorder: No - HEENT Hx HEENT Disorder: No - Renal Hx Renal Disorder: No - Endocrine/Metabolic Hx Endocrine Disorders: No - Hematological/Oncological Hx Blood Disorders: No - Integumentary Hx Dermatological Disorder: No - Musculoskeletal/Rheumatological Hx Musculoskeletal Disorders: No - Gastrointestinal Hx Gastrointestinal Disorders: No - Genitourinary/Gynecological Hx Genitourinary Disorders: No - Psychiatric Hx Psychophysiologic Disorder: No Hx Substance Use: No - Surgical History Hx Appendectomy: Yes Hx Cardiac Catheterization: Yes (stent x1) - Anesthesia Hx Anesthesia Reactions: No Hx Malignant Hyperthermia: No - Suicidal Assessment Feels Threatened In Home Enviroment: No Family/Social History - Physician Review Nursing Documentation Reviewed: Yes Family/Social History: Unknown Family HX Smoking Status: Heavy Smoker > 10 Cigarettes Daily Hx Alcohol Use: Yes (social) Hx Substance Use: No Substance used: marijuana Allergies/Home Meds Allergies/Adverse Reactions: Allergies No Known Allergies Allergy (Verified 02/27/18 21:50) Review of Systems - Physician Review All systems were reviewed & negative as marked: Yes - Review of Systems Constitutional: Fevers Respiratory: absent: SOB, Cough Cardiovascular: absent: Chest Pain, Palpitations Gastrointestinal: Abdominal Pain, Appetite Changes (decreased appetite). absent : Nausea, Vomiting, Hematochezia, Hematemesis, Anorexia, Food Intolerance Genitourinary Male: Dysuria, Other (testicula rpain). absent: Frequency, Hematuria, Urinary Output Changes Musculoskeletal: Normal. absent: Back Pain, Neck Pain Skin: absent: Rash, Pruritis Neurological: Normal. absent: Headache, Dizziness Psychiatric: Normal. absent: Anxiety, Depression Physical Exam Vital Signs Reviewed: Yes Vital Signs Temp Pulse Resp BP Pulse Ox 02/27/18 22:30 102.3 F H 02/27/18 22:15 102.3 F H 107 H 18 139/84 97 02/27/18 21:50 99.3 F 135 H 18 137/91 H 98 Temperature: Febrile Blood Pressure: Normal Pulse: Tachycardic Respiratory Rate: Normal Appearance: Positive for: Well-Appearing, Non-Toxic, Comfortable Mental Status: Positive for: Alert and Oriented X 3 - Systems Exam Head: Present: Atraumatic, Normocephalic Conjunctiva: Present: Normal Mouth: Present: Moist Mucous Membranes Neck: Present: Normal Range of Motion, Trachea Midline Respiratory/Chest: Present: Clear to Auscultation. No: Wheezes, Rales, Rhonchi Cardiovascular: Present: Tachycardic. No: Murmurs, Rub, Gallop Abdomen: Present: Tenderness (diffuse abdominal tenderness greatest in the lower quadrants and suprapubic. ), Normal Bowel Sounds, Guarding. No: Distention, Rebound Genitourinary Male: Present: Normal External Genitalia, Testicle Tenderness ( left sided testicular tenderness), Other (Superintendent Maintenance present, Dr. Lawson.). No : Lesions, Penile Discharge, Erythema, Hernias, Testicle Swelling Back: Present: Normal Inspection. No: CVA Tenderness Upper Extremity: Present: Normal Inspection, Normal ROM Lower Extremity: Present: Normal Inspection, Normal ROM Neurological: Present: GCS=15, Speech Normal Skin: Present: Warm, Dry, Normal Color. No: Rashes Psychiatric: Present: Alert, Oriented x 3 Medical Decision Making ED Course and Treatment: 02/27/18 21:50 Impression: 43 year old male presents to the Emergency Department for abdominal pain. Plan: -- EKG -- Chest X-ray -- CT Abdomen/Pelvis -- US Testes Duplex -- Labs, blood culture -- IV fluids -- Urinalysis, urine culture -- Tylenol -- Morphine -- Reassess and disposition Progress Notes: Patient was found to have a rectal temperature of 102.3 Tylenol given by mouth. 02/27/18 23:11 EKG shows sinus tachycardia at [address] elevations Chest x-ray shows no infiltrate or effusion or free air CBC White blood cell count 13.1 CMP within normal limits Lactic acid within normal limits Lipase within normal limits UA; no leukocytes pt with left sided testicular pain; US testicle: FINDINGS: Right testicle: No mass. No torsion. Left testicle: No mass. No torsion. Epididymides: Unremarkable as visualized. Scrotum: Unremarkable. IMPRESSION: No definite sonographic evidence of testicular torsion ct abd/pelvis with IV contrast:FINDINGS: Lung bases: 0.3 cm LEFT lower lobe nodule. ABDOMEN: Liver: Fatty infiltration. Gallbladder and bile ducts: No calcified stones. No ductal dilation. Pancreas: No ductal dilation. No mass. Spleen: No splenomegaly. Adrenals: No mass. Kidneys and ureters: No mass. No hydronephrosis. Stomach and bowel: Few scattered diverticula within colon. Moderate mural thickening short segment of proximal sigmoid colon. Moderate stranding within adjacent fat. Apparent 0.8 x 1.0 x 1.3 cm hypodensity within inflamed wall of sigmoid colon (coronal image 56). PELVIS: Appendix: Appendectomy. Bladder: Apparent mild bladder wall thickening. Incomplete distention, limiting evaluation. Reproductive: Unremarkable as visualized. ABDOMEN and PELVIS: Intraperitoneal space: No free air. Trace free fluid within pelvis. Bones/joints: Early degenerative changes of spine. No acute fracture. Soft tissues: Unremarkable. Vasculature: Unremarkable. No aneurysm. Lymph nodes: No pathologically enlarged lymph nodes. IMPRESSION: 1. Findings compatible with acute diverticulitis of sigmoid colon. Cannot exclude small mural phlegmon/abscess. Recommend endoscopy following resolution. 2. Cystitis vs underdistention. Correlate with urinalysis. 3. Pulmonary nodule. For low-risk patients, no follow-up is necessary. For high- risk patients (smoking history or other known risk factors) an optional CT at 12 months could be performed. 4. Incidental/non-acute findings are described above. pt started on zosyn and flagyl IV. case discussed with dr. cui; accepts admission. will consult surgery. case discussed with business services vice president dr. pantoja. will consult with dr. morales all results discussed with patient and in depth. impression: diverticulitis with possible abscess admit to med/surg Reassessment Condition: Re-examined, Improved - Lab Interpretations Lab Results: 02/27/18 22:01 02/27/18 22:01 Lab Results 02/27/18 22:30: Urine Color Yellow, Urine Appearance Clear, Urine pH 6.0, Ur Specific [place] 1.015, Urine Protein Negative, Urine Glucose (UA) Negative, Urine Ketones Trace H, Urine Blood Negative, Urine Nitrate Negative, Urine Bilirubin Negative, Urine Urobilinogen 0.2, Ur Leukocyte Esterase Negative 02/27/18 22:01: PT 12.9 H, INR 1.13 H, APTT 27.1 02/27/18 22:01: WBC 13.1 H D, RBC 3.87, Hgb 13.8 L, Hct 39.0 L, MCV 100.8 D, MCH 35.7 H, MCHC 35.4, RDW 12.1, Plt Count 211, MPV 9.6, Gran % 78.2 H, Lymph % (Auto) 14.9 L, Gregory % (Auto) 6.0, Eos % (Auto) 0.7 L, Baso % (Auto) 0.2, Gran # 10.25 H, Lymph # (Auto) 2.0, Gregory # (Auto) 0.8 H, Eos # (Auto) 0.1, Baso # (Auto ) 0.03 02/27/18 22:01: Sodium 138, Chloride 100, Potassium 3.4 L, Carbon Dioxide 24, Anion Gap 17, BUN 8, Creatinine 0.9, Est GFR ( Amer) > 60, Est GFR (Non- Af Amer) > 60, Random Glucose 99, Calcium 9.1, Total Bilirubin 2.1 H, AST 34, ALT 41, Alkaline Phosphatase 65, Total Protein 7.8, Albumin 4.3, Globulin 3.5, Albumin/Globulin Ratio 1.2, Lipase 53 02/27/18 22:01: pO2 35, VBG pH 7.38, VBG pCO2 44.0, VBG HCO3 26.0, VBG Total CO2 27.4, VBG O2 Sat (Calc) 73.2 H, VBG Base Excess 0.5, VBG Potassium 3.2 L, Sodium 134.0, Chloride 101.0, Glucose 98, Lactate 0.8, FiO2 21.0, Venous Blood Potassium 3.2 L - RAD Interpretation Radiology Orders: 02/27/18 21:52 ABD & PELVIS IV CONTRAST ONLY [CT] Stat 02/27/18 21:53 TESTES DUPLEX COMPLETE [US] Stat 02/27/18 21:54 CHEST PORTABLE [RAD] Stat - Medication Orders Current Medication Orders: Metronidazole (Flagyl) 500 mg in 100 mls @ 100 mls/hr IVPB STAT STA PRN Reason: Protocol Stop: 02/28/18 00:04 Discontinued Medications Acetaminophen (Tylenol 325mg Tab) 975 mg PO STAT STA Stop: 02/27/18 22:20 Last Admin: 02/27/18 22:30 Dose: 975 mg MAR Pain/Vitals Document 02/27/18 22:30 BLAZE (Rec: 02/27/18 22:30 LA [id number]) Pain Reassessment Is This A Pain ReAssessment? No Sleep Is patient sleeping during reassessment? No Presence of Pain Presence of Pain Yes Pain Scale Used Pain Scale Used Numeric Location Pain Location Body Site Abdomen Description Intermittent Intensity 8 Vitals Temperature (97.6 F-99.6 F) 102.3 F Temperature Source Rectal Sodium Chloride (Sodium Chloride 0.9%) 1,000 mls @ 999 mls/hr IV .Q1H1M STA Stop: 02/27/18 22:53 Last Admin: 02/27/18 22:08 Dose: 999 mls/hr eMAR Start Stop Document 02/27/18 22:08 LA (Rec: 02/27/18 22:09 LA [id number]) Intravenous Solution Start Date 02/27/18 Start Time 22:09 End Date 02/27/18 End time 23:10 Total Infusion Time 61 Piperacillin Sod/Tazobactam Sod (Zosyn 3.375 In Ns 100ml) 100 mls @ 200 mls/hr IVPB STAT STA PRN Reason: Protocol Stop: 02/27/18 23:34 Last Admin: 02/27/18 23:25 Dose: 200 mls/hr eMAR Start Stop Document 02/27/18 23:25 LA (Rec: 02/27/18 23:27 LA [id number]) Intravenous Solution Start Date 02/27/18 Start Time 23:25 End Date 02/27/18 End time 23:55 Total Infusion Time 30 Morphine Sulfate (Morphine) 4 mg IVP STAT STA Stop: 02/27/18 22:20 Last Admin: 02/27/18 22:29 Dose: 4 mg MAR Pain Assessment Document 02/27/18 22:29 LA (Rec: 02/27/18 22:29 LA [id number]) Pain Reassessment Is this a pain reassessment? No Sleep Is patient sleeping during reassessment? No Presence of Pain Presence of Pain Yes Pain Scale Used Pain Scale Used Numeric Location Pain Location Body Site Groin Description Description Intermittent Intensity of Pain at present 8 Pain Behavior Guarding IVP Administration Document 02/27/18 22:29 LA (Rec: 02/27/18 22:29 LA [id number]) Charges for Administration # of IVP Administrations 1 - Scribe Statement The provider has reviewed the documentation as recorded by the Scribe Tonie Powell, under the training of Rachel Bates. All medical record entries made by the Scribe were at my direction and personally dictated by me. I have reviewed the chart and agree that the record accurately reflects my personal performance of the history, physical exam, medical decision making, and the department course for this patient. I have also personally directed, reviewed, and agree with the discharge instructions and disposition. Disposition/Present on Arrival - Present on Arrival Any Indicators Present on Arrival: No History of DVT/PE: No History of Uncontrolled Diabetes: No Urinary Catheter: No History of Decub. Ulcer: No History Surgical Site Infection Following: None - Disposition Have Diagnosis and Disposition been Completed?: Yes Diagnosis: Diverticulitis, Pulmonary nodule Disposition: HOSPITALIZED Disposition Time: 23:44 Patient Plan: Admission Condition: FAIR Referrals: Jaqui Hall MD [Primary Care Provider] - Follow up with primary Forms: [employer] ([place] [employer])
[2018-02-27 22:07] VITALS: BMI 29.3
[2018-02-27 22:17] LABS: BASO # 0.03 K/mm3 (0.0-2.0); BASO % 0.2 % (0.0-3.0); EOS # 0.1 (0.0-0.7); EOS % 0.7 % (1.5-5.0); GRAN # 10.25 (1.4-6.5); GRAN % 78.2 % (50.0-68.0); HEMOGLOBIN 13.8 g/dL (14.0-18.0); LYMPH % 14.9 % (22.0-35.0); MEAN CELL VOLUME 100.8 fl (80.0-105.0); MEAN CORPUSCULAR HEMOGLOBIN 35.7 pg (25.0-35.0); MEAN CORPUSCULAR HGB CONC 35.4 g/dl (31.0-37.0); MEAN PLATELET VOLUME 9.6 fl (7.0-11.0); MONO # 0.8 (0.1-0.6); RBC 3.87 10^6/uL (3.5-6.1); RED CELL DISTRIBUTION WIDTH 12.1 % (11.5-14.5); WHITE BLOOD COUNT 13.1 10^3/ul (4.5-11.0)
[2018-02-27] MEDS ORDERED: Morphine 4 mg/ml ISec IVP STA (22:19)
[2018-02-27 22:24] LABS: VENOUS BLOOD GAS BASE EXCESS 0.5 mmol/L (0.0-2.0); VENOUS BLOOD GAS PO2 35 mm/Hg (30-55); VENOUS BLOOD PH 7.38 (7.32-7.43)
[2018-02-27 22:31] LABS: ALB/GLOB RATIO 1.2 (1.1-1.8); ALBUMIN 4.3 g/dL (3.0-4.8); ALT/SGPT 41 U/L (7-56); AST/SGOT 34 U/L (17-59); BLOOD UREA NITROGEN 8 mg/dL (7-21); CALCIUM 9.1 mg/dL (8.4-10.5); GFR AFRICAN-AMERICAN > 60; GFR NON-AFRICAN AMERICAN > 60; LIPASE 53 U/L (23-300)
[2018-02-27 22:32] LABS: INR 1.13 (0.93-1.08); PARTIAL THROMBOPLASTIN TIME 27.1 Seconds (25.1-36.5); PROTHROMBIN TIME 12.9 SECONDS (9.4-12.5)
[2018-02-27 22:38] LABS: URINE BILIRUBIN NEGATIVE (NEGATIVE); URINE BLOOD NEGATIVE (NEGATIVE); URINE GLUCOSE (UA) NEGATIVE (NEGATIVE); URINE LEUKOCYTE ESTERASE NEGATIVE Leu/uL (NEGATIVE); URINE PROTEIN NEGATIVE mg/dL (<30 mg/dL); URINE UROBILINOGEN 0.2 E.U./dL (<1 E.U./dL)
[2018-02-27 22:39] LABS: URINE APPEARANCE CLEAR (CLEAR); URINE COLOR YELLOW (YELLOW)
[2018-02-27] MEDS ORDERED: Iohexol 350 MG/100 ML VIAL ONE (22:51)
[2018-02-27] MEDS ORDERED: Piperacillin/Tazobact 3.375 gm 100 ML IVPB STA (23:05)
[2018-02-27] MEDS ORDERED: metroNIDAZOLE IV 500 mg/100 ml 500 MG/100 ML BAG IVPB STA (23:05)
[2018-02-28] MEDS ORDERED: Morphine 2 mg/2 mL syringe IVP PRN (01:02)
--- NOTE | 2018-02-28 01:09 | CP.PCM.CON ---
History of Present Illness - History of Present Illness History of Present Illness: Mr. Brunson is a 43 yr old male with PMH of acute pancreatitis in 2011 and MA in June 2017 with [address] Andrew at [facility] who presents today with a 2 day history of worsening abdominal pain and fever (102.3 in ED). Patient states that 1 weeks ago he had a one week episode of vomiting and is unsure if it si related to his pain now. he has not vomited i one week. He admits to fevers. He denies n/v/d/chills, change in stool or blood in stool and also denies any previous bouts of diverticulitis. PMH: MA, Pancreatitis PSH: appendectomy,vasectomy Allergies none social: quit smoking in June after 25 yrs Past Patient History - Infectious Disease Hx of Infectious Diseases: None - Past Social History Smoking Status: Heavy Smoker > 10 Cigarettes Daily - CARDIAC Hx Cardiac Disorders: Yes Hx Heart Attack: Yes Hx Hypertension: Yes - PULMONARY Hx Respiratory Disorders: No - NEUROLOGICAL Hx Neurological Disorder: No - HEENT Hx HEENT Problems: No - RENAL Hx Chronic Kidney Disease: No - ENDOCRINE/METABOLIC Hx Endocrine Disorders: No - HEMATOLOGICAL/ONCOLOGICAL Hx Blood Disorders: No - INTEGUMENTARY Hx Dermatological Problems: No - MUSCULOSKELETAL/RHEUMATOLOGICAL Hx Musculoskeletal Disorders: No - GASTROINTESTINAL Hx Gastrointestinal Disorders: No - GENITOURINARY/GYNECOLOGICAL Hx Genitourinary Disorders: No - PSYCHIATRIC Hx Psychophysiologic Disorder: No Hx Substance Use: No - SURGICAL HISTORY Hx Appendectomy: Yes Hx Cardiac Catheterization: Yes (stent x1) - ANESTHESIA Hx Anesthesia Reactions: No Hx Malignant Hyperthermia: No Meds Allergies/Adverse Reactions: Allergies Allergy/AdvReac Type Severity Reaction Status Date / Time No Known Allergies Allergy Verified 02/27/18 21:50 Results - Vital Signs Recent Vital Signs: Last Vital Signs Temp 100.5 F H 02/28/18 00:42 Pulse 103 H 02/28/18 00:42 Resp 18 02/28/18 00:42 BP 115/72 02/28/18 00:42 Pulse Ox 98 02/28/18 00:42 - Labs Result Diagrams: 02/27/18 22:01 02/28/18 04:15 Assessment & Plan - Assessment and Plan (Free Text) Assessment: 43 yr old male with acute diverticulitis with possible phlegmon Plan: - keep pt NPO - begin maintenance fluids - strict I&O - begin cipro and flagyl - discussed with Dr. Zach Kim PGY 1 - Date & Time Date: 02/27/18 Time: 11:55
[2018-02-28] MEDS ORDERED: Ciprofloxacin 400mg/200ml D5W 400 MG/200 ML BAG IVPB SCH ×2 (01:15→13:00)
[2018-02-28] MEDS ORDERED: Sodium Chloride 0.9% 1,000 ML IV SCH ×2 (01:15→09:24)
--- NOTE | 2018-02-28 01:30 | CP.PCM.HP ---
History of Present Illness - History of Present Illness History of Present Illness: Mino Eckert DO PGY1 [facility] - Hospital H&P HPI: 43M PMH of HTN, HLD, CAD s/p LAD stent 06/2017 on DAPT presenting to [facility] ED on w/ a CC of suprapubic/ lower quadrant abdominal. He stated that abdominal pain has been gradually worsening since this AM; no prior episodes in the past. Has had associated gas/ watery stools however no bloody stools reported. Pain is constant w/ intermittent severe episodes which range from pressure like sensation to sharp sensation. He has reported poor PO intake over the past 24H. Pt has had an associated increase in urinary urgency over the last day however denies any hematuria/ dysuria. Pt did report some testicular discomfort. Denies any CP, SOB, palpitations, TEJADA, bv, N/V/C, focal weakness, numbness. Remainder of 12 system ROS was otherwise negative. PMD: Dr. Hall Pharmacy: [facility] PSH: Appendectomy 25 year ago, vasectomy 22 year ago, LAD stent 06/2016 PMH: HTN, HLD, CAD s/p LAD stent 06/2017 Home Rx: Brilinta 60 last taken 02/27 1800; ASA81 last taken 02/27 1800; lipitor, lopressor Social: Former smoker 25 pack year hx; In ED: VS: Febrile, Tachycardic, Normotensive, RR, 100% sat CBC/CMP: WBC:13.1; Tbili 2.1 CTAP read as: 1. Findings compatible with acute diverticulitis of sigmoid colon. Cannot exclude small mural phlegmon/abscess. Recommend endoscopy following resolution. 2. Cystitis vs underdistention. Correlate with urinalysis. 3. Pulmonary nodule. For low-risk patients, no follow-up is necessary. For high- risk patients (smoking history or other known risk factors) an optional CT at 12 months could be performed. 4. Incidental/non-acute findings are described above. Testicular U/S read as: No definite sonographic evidence of testicular torsion. Pt. started on 100mls/hr IVF, Flagyll, Zosyn Present on Admission - Present on Admission Any Indicators Present on Admission: No Past Patient History - Infectious Disease Hx of Infectious Diseases: None - Past Social History Smoking Status: Heavy Smoker > 10 Cigarettes Daily - CARDIAC Hx Cardiac Disorders: Yes Hx Heart Attack: Yes Hx Hypertension: Yes - PULMONARY Hx Respiratory Disorders: No - NEUROLOGICAL Hx Neurological Disorder: No - HEENT Hx HEENT Problems: No - RENAL Hx Chronic Kidney Disease: No - ENDOCRINE/METABOLIC Hx Endocrine Disorders: No - HEMATOLOGICAL/ONCOLOGICAL Hx Blood Disorders: No - INTEGUMENTARY Hx Dermatological Problems: No - MUSCULOSKELETAL/RHEUMATOLOGICAL Hx Musculoskeletal Disorders: No - GASTROINTESTINAL Hx Gastrointestinal Disorders: No - GENITOURINARY/GYNECOLOGICAL Hx Genitourinary Disorders: No - PSYCHIATRIC Hx Psychophysiologic Disorder: No Hx Substance Use: No - SURGICAL HISTORY Hx Appendectomy: Yes Hx Cardiac Catheterization: Yes (stent x1) - ANESTHESIA Hx Anesthesia Reactions: No Hx Malignant Hyperthermia: No Meds Allergies/Adverse Reactions: Allergies Allergy/AdvReac Type Severity Reaction Status Date / Time No Known Allergies Allergy Verified 02/27/18 21:50 Physical Exam - Constitutional Appears: Well Additional comments: Uncomfortable - Head Exam Head Exam: ATRAUMATIC, NORMOCEPHALIC - Eye Exam Eye Exam: EOMI, PERRL. absent: Scleral icterus - ENT Exam ENT Exam: Mucous Membranes Moist - Respiratory Exam Respiratory Exam: Clear to Auscultation Bilateral, NORMAL BREATHING PATTERN. absent: Rales, Rhonchi, Wheezes - Cardiovascular Exam Cardiovascular Exam: REGULAR RHYTHM, RRR, +S1, +S2. absent: Systolic Murmur - GI/Abdominal Exam Additional comments: Abdomen soft, tender in RLQ/LLQ and suprapubic region. Dull to percussion; Distended. - Extremities Exam Extremities exam: Positive for: pedal pulses present (2+ TP/DP BL). Negative for: tenderness - Back Exam Back exam: absent: CVA tenderness (L), CVA tenderness (R) - Neurological Exam Neurological exam: Alert, CN II-XII Intact, Oriented x3 - Psychiatric Exam Psychiatric exam: Normal Affect, Normal Mood - Skin Skin Exam: Dry, Intact, Warm Results - Vital Signs Recent Vital Signs: Last Vital Signs Temp 100.5 F H 02/28/18 01:00 Pulse 100 H 02/28/18 01:00 Resp 18 02/28/18 01:00 BP 118/70 02/28/18 01:00 Pulse Ox 100 02/28/18 01:00 - Labs Result Diagrams: 02/27/18 22:01 02/28/18 04:15 Assessment & Plan - Assessment and Plan (Free Text) Assessment: 43M PMH of HTN, HLD, CAD s/p LAD stent 06/2017 on DAPT presenting to [facility] ED on w/ a CC of suprapubic/ lower quadrant abdominal; found to have complicated diverticulitis on arrival. Acute Diverticulitis w/ phlegmon NPO Morphine 2gm Q4PRN severe pain Acetominophen 650PRN fever / moderate pain NS @ 50CC/hr Start Cipro + Flagyl Surgery Consulted; Case discussed w/ overnight surgical test engineering intern - no plans for OR in the morning Pulmonary nodule No signs/ symptoms at this time; Given smoking history patient will benefit for f/u CT in 12mo. CAD s/p LAD stent; 06/29 EF 35-39% as per 2017 Echo and Stress tests No plans for OR in the AM; Okay to Restart ASA/Brillinta in AM Hx HTN Pt currently normotensive restart home rx as necessary Hx HLD resume home statin DVT/ GI PPX: SCD/ Famotidine Dispo: Admit patient for medical management of diverticulitis Pt. seen and case discussed w/ attending physician Dr. David Eckert DO PGY1 [facility] - Date & Time Date: 02/28/18 Time: 02:47
[2018-02-28] MEDS ORDERED: DiphenhydrAMINE 50 mg/ml Inj IVP STA ×2 (01:48→01:52)
[2018-02-28] MEDS: metroNIDAZOLE IV 500 mg/100 ml 500 MG/100 ML BAG IVPB SCH ×2 (01:49→06:51)
[2018-02-28 04:35] LABS: BLOOD UREA NITROGEN 7 mg/dL (7-21); CALCIUM 8.7 mg/dL (8.4-10.5); GFR AFRICAN-AMERICAN > 60; GFR NON-AFRICAN AMERICAN > 60
--- NOTE | 2018-02-28 07:14 | RAD ---
Date of service: 02/27/2018 HISTORY: abd pain COMPARISON: 07/09/2017 FINDINGS: LUNGS: No active pulmonary disease. PLEURA: No significant pleural effusion identified, no pneumothorax apparent. CARDIOVASCULAR: Normal. OSSEOUS STRUCTURES: No significant abnormalities. VISUALIZED UPPER ABDOMEN: Normal. OTHER FINDINGS: None. IMPRESSION: No active disease.
--- NOTE | 2018-02-28 08:53 | CP.PCM.CON ---
<Bobby Tyson - Last Filed: 02/28/18 09:57> History of Present Illness - History of Present Illness History of Present Illness: PGY-4 GI Fellow Consult Note Mr. Brunson is a 43 yo Hisp Male with h/o CAD s/p stenting to LAD Jun 2017 ( on DAPT), HTN, HLD presenting with abdominal pain and fever. He states over the last two days he has had progressively worse LLQ and suprapubic abdominal pain, pressure like most but increasing in severity to sharp intermittently, non -radiating. He reports associated fevers, tenesmus and loose stools. Prior to 48 hrs, he states he was in his normal state of health, reporting formed, brown stools 1-2x per day. He denies any weight loss, dysphagia, melena, hematochezia nor prior EGDs/CSPY. In the ED, he was found to have temp up to 102.3, HR 100-120s, WBC 13.[address] scan with signs of sigmoid diverticulitis with possible abscess/phelgmon; therefore, GI consulted for further recs. 12 point ROS negative other than stated above MHx CAD s/p stent to LAD 07/08/17, on ASA and ticagrelor HTN, HLD SurgHx Appendectomy,Vasectomy, Heart Cath Meds: ASA, ticagrelor, atorvastatin, metoprolol FamHx: Denies fam h/o GI probs/malignancy SocHx: Tob - 25 pack year smoker but quit Jun 2017 EtOH - Rare Ill - Rare MJ use All: NKDA Past Patient History - Infectious Disease Hx of Infectious Diseases: None - Past Social History Smoking Status: Heavy Smoker > 10 Cigarettes Daily - CARDIAC Hx Cardiac Disorders: Yes Hx Heart Attack: Yes Hx Hypertension: Yes - PULMONARY Hx Respiratory Disorders: No - NEUROLOGICAL Hx Neurological Disorder: No - HEENT Hx HEENT Problems: No - RENAL Hx Chronic Kidney Disease: No - ENDOCRINE/METABOLIC Hx Endocrine Disorders: No - HEMATOLOGICAL/ONCOLOGICAL Hx Blood Disorders: No - INTEGUMENTARY Hx Dermatological Problems: No - MUSCULOSKELETAL/RHEUMATOLOGICAL Hx Musculoskeletal Disorders: No - GASTROINTESTINAL Hx Gastrointestinal Disorders: No - GENITOURINARY/GYNECOLOGICAL Hx Genitourinary Disorders: No - PSYCHIATRIC Hx Psychophysiologic Disorder: No Hx Substance Use: No - SURGICAL HISTORY Hx Appendectomy: Yes Hx Cardiac Catheterization: Yes (stent x1) - ANESTHESIA Hx Anesthesia Reactions: No Hx Malignant Hyperthermia: No Meds Allergies/Adverse Reactions: Allergies Allergy/AdvReac Type Severity Reaction Status Date / Time No Known Allergies Allergy Verified 02/27/18 21:50 - Medications Medications: Current Medications Acetaminophen (Tylenol 325mg Tab) 650 mg PO Q6H PRN PRN Reason: Fever >100.4 F Acetaminophen (Tylenol 325mg Tab) 650 mg PO Q6H PRN PRN Reason: MILD/MODERATE PAIN Last Admin: 02/28/18 02:20 Dose: 650 mg Aspirin (Ecotrin) 81 mg PO DAILY [facility] Atorvastatin Calcium (Lipitor) 80 mg PO DIN [facility] Famotidine (Pepcid) 20 mg IVP DAILY [facility] Metronidazole (Flagyl) 500 mg in 100 mls @ 100 mls/hr IVPB Q8 YO PRN Reason: Protocol Last Admin: 02/28/18 06:51 Dose: 100 mls/hr Sodium Chloride (Sodium Chloride 0.9%) 1,000 mls @ 50 mls/hr IV .Q20H [facility] Last Admin: 02/28/18 01:47 Dose: 50 mls/hr Ciprofloxacin (Cipro 400mg/200ml Dsw) 400 mg in 200 mls @ 133.3 mls/hr IVPB Q12H YO PRN Reason: Protocol Stop: 02/28/18 14:31 Morphine Sulfate (Morphine) 2 mg IVP Q4H PRN PRN Reason: Pain, severe (8-10) Ticagrelor (Brilinta) 60 mg PO BID [facility] Physical Exam - Constitutional Appears: Well, Toxic, No Acute Distress - Head Exam Head Exam: ATRAUMATIC, NORMAL INSPECTION - Eye Exam Eye Exam: EOMI, Normal appearance. absent: Conjunctival injection, Scleral icterus - ENT Exam ENT Exam: Mucous Membranes Moist, Normal External Ear Exam - Respiratory Exam Respiratory Exam: Clear to Auscultation Bilateral, NORMAL BREATHING PATTERN. absent: Accessory Muscle Use, Prolonged Expiratory Phase, Wheezes - Cardiovascular Exam Cardiovascular Exam: REGULAR RHYTHM. absent: Bradycardia, Tachycardia, Systolic Murmur - GI/Abdominal Exam GI & Abdominal Exam: Normal Bowel Sounds, Soft, Tenderness (LLQ w/o guarding). absent: Bruit, Distended, Firm, Guarding, Rigid - Rectal Exam Rectal Exam: Deferred - Neurological Exam Neurological exam: Alert, CN II-XII Intact, Oriented x3 - Psychiatric Exam Psychiatric exam: Normal Affect, Normal Mood - Skin Skin Exam: Intact, Normal Color Results - Vital Signs Recent Vital Signs: Last Vital Signs Temp 100.0 F H 02/28/18 04:52 Pulse 95 H 02/28/18 02:56 Resp 20 02/28/18 02:56 BP 124/71 02/28/18 02:56 Pulse Ox 100 02/28/18 01:00 - Labs Result Diagrams: 02/27/18 22:01 02/28/18 04:15 Labs: Laboratory Results - last 24 hr 02/28/18 04:15 Sodium 139 Potassium 4.1 Chloride 104 Carbon Dioxide 26 Anion Gap 13 BUN 7 Creatinine 0.9 Est GFR ( Amer) > 60 Est GFR (Non-Af Amer) > 60 Random Glucose 90 Calcium 8.7 Assessment & Plan - Assessment and Plan (Free Text) Assessment: 43 yo Hisp Male with CAD s/p stenting on 07/08/17 presenting with abd pain and fever. # Acute Diverticulitis: 1st episode. Complicated by possible phlegmon/abscess. No prior endoscopies. Will need outpatient CSPY; however, given DAPT for recent stent placement (06/2617), will need to be on for at least one year uninterrupted. Therefore, will need to discuss risk/benefits regarding time of outpatient. If done prior to 07/09/18, will not be able to take biopsies given DAPT. # CAD s/p stent to LAD 07/08/17: Continue ASA and ticagrelor x1 year. # H/o EtOH Abuse, h/o EtOH induced pancreatitis: Counseled pt on recommended EtOH use. Plan: - Agree with Ciprofloxacin + Metronidazole --- IV for now, but when able to take PO will need total of 14 day course - CLD, ADAT - Agree with Surgery Consult - Counseled pt on need to avoid constipation. Miralax/fiber for daily bowel movements - Will f/u with Dr. Hein as outpatient in March to discuss timing of CSPY Pt seen and examined with Dr. Pak <Ugo Pak - Last Filed: 02/28/18 11:01> Meds - Medications Medications: Current Medications Acetaminophen (Tylenol 325mg Tab) 650 mg PO Q6H PRN PRN Reason: Fever >100.4 F Acetaminophen (Tylenol 325mg Tab) 650 mg PO Q6H PRN PRN Reason: MILD/MODERATE PAIN Last Admin: 02/28/18 02:20 Dose: 650 mg Aspirin (Ecotrin) 81 mg PO DAILY [facility] Last Admin: 02/28/18 10:01 Dose: 81 mg Atorvastatin Calcium (Lipitor) 80 mg PO DIN [facility] Famotidine (Pepcid) 20 mg IVP DAILY [facility] Last Admin: 02/28/18 10:06 Dose: 20 mg Sodium Chloride (Sodium Chloride 0.9%) 1,000 mls @ 100 mls/hr IV .Q10H YO Piperacillin Sod/Tazobactam Sod (Zosyn 3.375 In Ns 100ml) 100 mls @ 200 mls/hr IVPB Q6 YO PRN Reason: Protocol Stop: 03/07/18 12:01 Morphine Sulfate (Morphine) 2 mg IVP Q4H PRN PRN Reason: Pain, severe (8-10) Ticagrelor (Brilinta) 60 mg PO BID [facility] Last Admin: 02/28/18 10:00 Dose: 60 mg Results - Vital Signs Recent Vital Signs: Last Vital Signs Temp 100 F H 02/28/18 06:00 Pulse 91 H 02/28/18 06:00 Resp 20 02/28/18 06:00 BP 125/79 02/28/18 06:00 Pulse Ox 98 02/28/18 06:00 - Labs Result Diagrams: 02/27/18 22:01 02/28/18 04:15 Labs: Laboratory Results - last 24 hr 02/28/18 04:15 Sodium 139 Potassium 4.1 Chloride 104 Carbon Dioxide 26 Anion Gap 13 BUN 7 Creatinine 0.9 Est GFR ( Amer) > 60 Est GFR (Non-Af Amer) > 60 Random Glucose 90 Calcium 8.7 Attending/Attestation - Attestation I have personally seen and examined this patient.: Yes I have fully participated in the care of the patient.: Yes I have reviewed all pertinent clinical information: Yes Notes (Text): 02/28/18 10:58 Patient seen and examined with GI fellow this am. This is a 43 year old male with CAD s/p stenting on DAPT on 07/08/17 presenting with abdominal pain and fever in setting of acute sigmoid diverticultiis with abscess formation on CT that I reviewed. This is his first episode and he is hemodynamically stable. Upon exam he has pain on deep palpation without guarding or rebound tenderness in LLQ. No fever. No s/s of SIRS. Continue anaerboc coverage antibiotics for total of two weeks. Will require outpatient colonoscopy in 6-8 weeks to rule out malignancy. He has history of ETOH abuse and binge drinking with pancreatitis x 2 in the past. On biochemical testing he is evidence of the same with elevated MCV. No further work up required. Clear liquid diet today.
--- NOTE | 2018-02-28 09:40 | CARD ---
APPROVED REPORT Date of service: 02/27/2018 EKG Measurement Heart [id number] <Conclusion> Sinus tachycardia Anteroseptal infarct, age undetermined Abnormal ECG
--- NOTE | 2018-02-28 10:11 | CT ---
Date of service: 02/27/2018 PROCEDURE: CT Abdomen and Pelvis with contrast HISTORY: abd pain COMPARISON: None. TECHNIQUE: Contrast dose: 100 cc Omnipaque 350. Radiation dose: Total exam DLP = 612.04 mGy-cm. This CT exam was performed using one or more of the following dose reduction techniques: Automated exposure control, adjustment of the mA and/or kV according to patient size, and/or use of iterative reconstruction technique. FINDINGS: LOWER THORAX: Unremarkable. LIVER: Unremarkable. No gross lesion or ductal dilatation. GALLBLADDER AND BILE DUCTS: Unremarkable. PANCREAS: Unremarkable. No gross lesion or ductal dilatation. SPLEEN: Unremarkable. ADRENALS: Unremarkable. No mass. KIDNEYS AND URETERS: Unremarkable. No hydronephrosis. No solid mass. VASCULATURE: Unremarkable. No aortic aneurysm. BOWEL: Acute sigmoid diverticulitis. Inflammatory changes about both mesenteric and anti mesenteric borders. Micro perforation identified with high density material/debris with this measuring approximately 1.3 cm. APPENDIX: Prior appendectomy. Surgical clips at the base of the cecum. PERITONEUM: Unremarkable. No free fluid. No free air. LYMPH NODES: Unremarkable. No enlarged lymph nodes. BLADDER: Under filling of the bladder results in diffuse bladder wall thickening. REPRODUCTIVE: Unremarkable. BONES: No acute fracture. OTHER FINDINGS: None. IMPRESSION: Acute sigmoid diverticulitis with micro perforations/extraluminal phlegmon. Additional benign and/or incidental findings described above. Concordant results (preliminary interpretation) provided by [facility]. Procedure Completed: 22:59 Preliminary ([facility]) Report: Dictated and Authenticated: 23:28 Final Interpretation: 10:09 February 28, 2018.
--- NOTE | 2018-02-28 10:13 | US ---
Date of service: 02/27/2018 HISTORY: left sided testicular pain TECHNIQUE: Realtime sonography through the scrotum with color and doppler flow. COMPARISON: None Available. FINDINGS: RIGHT TESTICLE: Measures 2.6 x 2.8 x 4.1 cm. Normal echotexture and flow. RIGHT EPIDIDYMIS: Epididymal head measures 0.8 x 0.6 cm. Grossly unremarkable appearance with normal flow. LEFT TESTICLE: Measures 2 x 2.7 x 4.0 cm. Normal echotexture and flow. LEFT EPIDIDYMIS: Epididymal head measures 0.9 x 0.8 cm. Grossly unremarkable appearance with normal flow. HYDROCELE: None. VARICOCELE: None. OTHER FINDINGS: None. IMPRESSION: No significant or acute findings to account for/ related to the clinical presentation. Concordant results (preliminary interpretation) provided by [facility]. Procedure Completed: 23:02 Preliminary ([facility]) Report: Dictated and Authenticated: 23:19 Final Interpretation: 10:11
[2018-02-28] MEDS: Piperacillin/Tazobact 3.375 gm 100 ML IVPB SCH ×3 (12:53→23:27)
--- NOTE | 2018-02-28 16:55 | CP.PCM.CON ---
History of Present Illness - History of Present Illness History of Present Illness: 43 year old male with PMH of HTN, dyslipidemia, CAD S/P PCI came in to [facility] [place] complaining of left lower quadrant pain which was initially vague but then became sharp in nature. She also had nausea, urinary urgency but no diarrhea, no dysuria or hematuria. The patient developed fever and chills as well. He denies headache or dizziness, no SOB, no cough or rhinorrhea, no chest pain, no sore throat. CT A/P was done which showed sigmoid diverticulitis and with phlegmon. Infectious Diseases consult is requested to further evaluate and manage. Review of Systems - Review of Systems All systems: reviewed and no additional remarkable complaints except (as per HPI ) Past Patient History - Infectious Disease Hx of Infectious Diseases: None - Past Social History Smoking Status: Heavy Smoker > 10 Cigarettes Daily - CARDIAC Hx Cardiac Disorders: Yes Hx Heart Attack: Yes Hx Hypertension: Yes - PULMONARY Hx Respiratory Disorders: No - NEUROLOGICAL Hx Neurological Disorder: No - HEENT Hx HEENT Problems: No - RENAL Hx Chronic Kidney Disease: No - ENDOCRINE/METABOLIC Hx Endocrine Disorders: No - HEMATOLOGICAL/ONCOLOGICAL Hx Blood Disorders: No - INTEGUMENTARY Hx Dermatological Problems: No - MUSCULOSKELETAL/RHEUMATOLOGICAL Hx Musculoskeletal Disorders: No - GASTROINTESTINAL Hx Gastrointestinal Disorders: No - GENITOURINARY/GYNECOLOGICAL Hx Genitourinary Disorders: No - PSYCHIATRIC Hx Psychophysiologic Disorder: No Hx Substance Use: No - SURGICAL HISTORY Hx Appendectomy: Yes Hx Cardiac Catheterization: Yes (stent x1) - ANESTHESIA Hx Anesthesia Reactions: No Hx Malignant Hyperthermia: No Meds Allergies/Adverse Reactions: Allergies Allergy/AdvReac Type Severity Reaction Status Date / Time No Known Allergies Allergy Verified 02/27/18 21:50 - Medications Medications: Current Medications Acetaminophen (Tylenol 325mg Tab) 650 mg PO Q6H PRN PRN Reason: Fever >100.4 F Acetaminophen (Tylenol 325mg Tab) 650 mg PO Q6H PRN PRN Reason: MILD/MODERATE PAIN Last Admin: 02/28/18 02:20 Dose: 650 mg Aspirin (Ecotrin) 81 mg PO DAILY [facility] Last Admin: 02/28/18 10:01 Dose: 81 mg Atorvastatin Calcium (Lipitor) 80 mg PO DIN [facility] Famotidine (Pepcid) 20 mg IVP DAILY [facility] Last Admin: 02/28/18 10:06 Dose: 20 mg Metronidazole (Flagyl) 500 mg in 100 mls @ 100 mls/hr IVPB Q8 YO PRN Reason: Protocol Last Admin: 02/28/18 06:51 Dose: 100 mls/hr Ciprofloxacin (Cipro 400mg/200ml Dsw) 400 mg in 200 mls @ 133.3 mls/hr IVPB Q12H YO PRN Reason: Protocol Stop: 02/28/18 14:31 Sodium Chloride (Sodium Chloride 0.9%) 1,000 mls @ 100 mls/hr IV .Q10H YO Morphine Sulfate (Morphine) 2 mg IVP Q4H PRN PRN Reason: Pain, severe (8-10) Ticagrelor (Brilinta) 60 mg PO BID [facility] Last Admin: 02/28/18 10:00 Dose: 60 mg Physical Exam - Constitutional Appears: Non-toxic - Head Exam Head Exam: NORMAL INSPECTION - Neck Exam Neck exam: Negative for: Meningismus - Respiratory Exam Respiratory Exam: absent: Rales, Rhonchi - Cardiovascular Exam Cardiovascular Exam: +S1, +S2 - GI/Abdominal Exam GI & Abdominal Exam: Soft, Tenderness (LLQ). absent: Distended, Firm, Guarding , Rebound, Rigid Results - Vital Signs Recent Vital Signs: Last Vital Signs Temp 100 F H 02/28/18 06:00 Pulse 91 H 02/28/18 06:00 Resp 20 02/28/18 06:00 BP 125/79 02/28/18 06:00 Pulse Ox 98 02/28/18 06:00 - Labs Result Diagrams: 02/27/18 22:01 02/28/18 04:15 Labs: Laboratory Results - last 24 hr 02/28/18 04:15 Sodium 139 Potassium 4.1 Chloride 104 Carbon Dioxide 26 Anion Gap 13 BUN 7 Creatinine 0.9 Est GFR ( Amer) > 60 Est GFR (Non-Af Amer) > 60 Random Glucose 90 Calcium 8.7 Assessment & Plan - Assessment and Plan (Free Text) Plan: Assessment Sepsis due to acute sigmoid diverticulitis with microperforation and phlegmon formation HTN dyslipidemia CAD S/P PCI Plan Started Zosyn and will follow up blood cx; monitor clinical response and advancement in diet will check HIV test because of his ager
[2018-02-28] MEDS ORDERED: DiphenhydrAMINE 50 mg/ml Inj IVP ONE (21:04)
[2018-02-28 21:53] VITALS: RESP 20
[2018-03-01] MEDS: Piperacillin/Tazobact 3.375 gm 100 ML IVPB SCH ×4 (05:44→23:20)
--- NOTE | 2018-03-01 06:16 | CP.PCM.PN ---
<Srinivasa Mcclain - Last Filed: 03/01/18 19:17> Subjective - Date & Time of Evaluation Date of Evaluation: 03/01/18 Time of Evaluation: 05:54 - Subjective Subjective: Srinivasa Mcclain D.O. PGY1 -- Lead Technical Architect -- Medicine Progress Note Patient reports that he is feeling better today. Patient states that he still has abdominal pain when laying down, but the intensity of the pain has improved. Moreover, the patient states he is eager to return to work. Patient was able to get out of bed and walk without difficulty. Patient says he is currently still having diarrhea, but attributes this to change in diet while in the hospital. Review of systems is otherwise negative for nausea, vomiting, chills, shortness of breath and/or chest pain. Objective - Vital Signs/Intake and Output Vital Signs (last 24 hours): Temp Pulse Resp BP Pulse Ox 98.2 F 90 20 119/84 96 02/28/18 23:15 02/28/18 23:15 02/28/18 21:53 02/28/18 21:53 02/28/18 21:53 Intake and Output: 02/28/18 03/01/18 18:59 06:59 Intake Total 660 Balance 660 - Medications Medications: Current Medications Acetaminophen (Tylenol 325mg Tab) 650 mg PO Q6H PRN PRN Reason: Fever >100.4 F Last Admin: 02/28/18 21:07 Dose: 650 mg Aspirin (Ecotrin) 81 mg PO DAILY [facility] Last Admin: 02/28/18 10:01 Dose: 81 mg Atorvastatin Calcium (Lipitor) 80 mg PO DIN [facility] Last Admin: 02/28/18 18:05 Dose: 80 mg Famotidine (Pepcid) 20 mg IVP DAILY [facility] Last Admin: 02/28/18 10:06 Dose: 20 mg Piperacillin Sod/Tazobactam Sod (Zosyn 3.375 In Ns 100ml) 100 mls @ 200 mls/hr IVPB Q6 YO PRN Reason: Protocol Stop: 03/07/18 12:01 Last Admin: 03/01/18 05:44 Dose: 200 mls/hr Sodium Chloride (Sodium Chloride 0.9%) 1,000 mls @ 50 mls/hr IV .Q20H [facility] Metoprolol Tartrate (Lopressor) 25 mg PO BRKDIN [facility] Last Admin: 02/28/18 18:05 Dose: 25 mg Morphine Sulfate (Morphine) 2 mg IVP Q4H PRN PRN Reason: Pain, severe (8-10) Ticagrelor (Brilinta) 60 mg PO BID [facility] Last Admin: 02/28/18 18:07 Dose: 60 mg - Labs Labs: 02/28/18 04:15 PT 12.9 SECONDS (9.4-12.5) H 02/27/18 22:01 INR 1.13 (0.93-1.08) H 02/27/18 22:01 APTT 27.1 Seconds (25.1-36.5) 02/27/18 22:01 - Constitutional Appears: Non-toxic, No Acute Distress - Head Exam Head Exam: ATRAUMATIC, NORMAL INSPECTION, NORMOCEPHALIC - Eye Exam Pupil Exam: NORMAL ACCOMODATION - ENT Exam ENT Exam: Mucous Membranes Moist, Normal Exam - Neck Exam Neck Exam: Full ROM, Normal Inspection - Respiratory Exam Respiratory Exam: Clear to Ausculation Bilateral, NORMAL BREATHING PATTERN. absent: Wheezes - Cardiovascular Exam Cardiovascular Exam: RRR. absent: Gallop - GI/Abdominal Exam GI & Abdominal Exam: Soft, Tenderness (suprapubic and left lower quadrant ), Normal Bowel Sounds. absent: Rebound - Extremities Exam Extremities Exam: Full ROM, Normal Inspection. absent: Pedal Edema - Back Exam Back Exam: NORMAL INSPECTION - Neurological Exam Neurological Exam: Alert, Awake, Normal Gait, Oriented x3 - Psychiatric Exam Psychiatric exam: Normal Affect, Normal Mood - Skin Skin Exam: Dry, Intact, Normal Color, Warm Assessment and Plan - Assessment and Plan (Free Text) Assessment: 43-year-old male with past medical history of hypertension, hyperlipidemia, coronary artery disease (CAD) status post stent placement in 06/2017 and on dual antiplatelet therapy presents to [facility] Emergency Department for a chief complaint of suprapubic pain, and was subsequently admitted for evaluation and treatment of acute diverticulitis. Acute Diverticulitis with possible phlegmon - Patient advanced from clear liquid diet to full liquid diet - Morphine 2mg IV for severe pain PRN - Acetaminophen 650 PRN fever / moderate pain - NS at 50cc/hr - Blood cultures: negative x24 hours - C-Diff toxin and antigen negative - Urine culture shows no growth x24 hours - Antibiotics were changed to Zosyn + Flagyl, per ID recommendations - Surgery consulted, recommends repeat CT with PO contrast before discharge, as per Surgery recommendations - Repeat colonoscopy in July once patient is able to be off Brilinta, as per GI recommendations Pulmonary nodule - No signs/ symptoms at this time - Given smoking history patient will benefit from repeat low resolution CT in 12 months CAD status post LAD stent; 06/29 - EF 35-39% as per 2017 Echo Stress tests - Continue ASA and Brillinta 60BID History of Hypertension - Patient is normotensive - Continue home meds (metoprolol) History of Hyperlipidemia - Continue home statin DVT/ GI PPX: SCD/ Famotidine Patient seen and case discussed with Attending Physician Dr. Babar Mcclain PGY1 <Chery Eckert R - Last Filed: 03/02/18 08:27> Objective - Vital Signs/Intake and Output Vital Signs (last 24 hours): Temp Pulse Resp BP Pulse Ox 98.4 F 104 H 20 134/86 99 03/01/18 22:49 03/01/18 22:49 03/01/18 22:49 03/01/18 22:49 03/01/18 22:49 Intake and Output: 03/02/18 03/02/18 06:59 18:59 Intake Total 660 Balance 660 - Medications Medications: Current Medications Acetaminophen (Tylenol 325mg Tab) 650 mg PO Q6H PRN PRN Reason: Fever >100.4 F Last Admin: 02/28/18 21:07 Dose: 650 mg Aspirin (Ecotrin) 81 mg PO DAILY [facility] Last Admin: 03/01/18 09:38 Dose: 81 mg Atorvastatin Calcium (Lipitor) 80 mg PO DIN [facility] Last Admin: 03/01/18 17:02 Dose: 80 mg Famotidine (Pepcid) 20 mg IVP DAILY [facility] Last Admin: 03/01/18 09:40 Dose: 20 mg Piperacillin Sod/Tazobactam Sod (Zosyn 3.375 In Ns 100ml) 100 mls @ 200 mls/hr IVPB Q6 YO PRN Reason: Protocol Stop: 03/07/18 12:01 Last Admin: 03/02/18 05:17 Dose: 200 mls/hr Sodium Chloride (Sodium Chloride 0.9%) 1,000 mls @ 50 mls/hr IV .Q20H [facility] Last Admin: 03/02/18 05:19 Dose: 50 mls/hr Metoprolol Tartrate (Lopressor) 25 mg PO BRKDIN [facility] Last Admin: 03/01/18 17:02 Dose: 25 mg Ticagrelor (Brilinta) 60 mg PO BID [facility] Last Admin: 03/01/18 17:02 Dose: 60 mg - Labs Labs: 03/02/18 07:00 03/02/18 07:00 PT 12.9 SECONDS (9.4-12.5) H 02/27/18 22:01 INR 1.13 (0.93-1.08) H 02/27/18 22:01 APTT 27.1 Seconds (25.1-36.5) 02/27/18 22:01 Attending/Attestation - Attestation I have personally seen and examined this patient.: Yes I have fully participated in the care of the patient.: Yes I have reviewed all pertinent clinical information, including history, physical exam and plan: Yes Notes (Text): Patient seen and examined by me at 11:00AM with resident 03/01/18. Case including HPI, physical exam, and physical assessment and plan discussed with resident. Agree with above with following additions/corrections. Patient states he is feeling better today and wants to go home. He is tolerating liquid diet. Still have lower abdominal pain but much improved from admission. Now he rates the pain as a 4/10. No radiation of the pain. Pain worsened with certain movements. No diarrhea but he is having bowel movements. No nausea or vomiting. Patient denies chest pain or shortness of breath. Patient was febrile last night. No headaches or dizziness. No dysuria. Physical exam: Gen: Awake and alert sitting up in bed in no acute distress HEENT: Normocephalic atraumatic. Extraocular muscles intact, pupils equal reactive. Oropharynx is pink and moist, no pharyngeal erythema or exudate appreciated. Neck is supple. Cardiovascular: Normal rhythm. Normal S1-S2. No murmurs, rubs, or gallops appreciated Pulmonary: Normal respiratory effort. No rhonchi, rales or wheezing appreciated. Gastrointestinal: Soft, positive tenderness lower abdomen, nondistended, positive bowel sounds all 4 quadrants, no guarding Musculoskeletal: Moves all extremities, no calf tenderness Central nervous system: AAO x 3. 5/5 muscle strength all extremities. CN 2-12 grossly intact Dermatologic: Skin warm and dry Assessment and plan: Patient is a 43-year-old male with past medical history significant or hypertension, hyperlipidemia, coronary artery disease that presented to the emergency room with suprapubic and lower abdominal pain. Patient was found to have acute diverticulitis. 1. Acute sigmoid diverticulitis with microperforation/extraluminal phlegmon. Seen on CT abdomen and pelvis. Surgery following, recommendations appreciated. ID following, recommendations appreciated. GI following, recommendations appreciated. Patient febrile last night. Uptrending leukocytosis. Continue with liquid diet. Continue Zosyn. Continue IV fluids. 2. Leukocytosis. Secondary to #1. Uptrending. Continue with Zosyn. Follow up repeat labs in a.m. 3. Abdominal pain. Secondary to #1. Improving. Continue to monitor 4. Pulmonary nodule. Incidental finding. Patient will need to follow-up with primary care doctor for outpatient CT of the chest 5. History of coronary artery disease. Status post stent. Continue with aspirin , Brilinta, Lopressor, and lipitor 6. Hypercholesterolemia. Continue Lipitor 7. Essential hypertension. Continue Lopressor Case was discussed in detail with patient and electromedical equipment repairer at bedside regarding current diagnosis and treatment plan.
--- NOTE | 2018-03-01 06:57 | CP.PCM.PN ---
<Bobby Tyson - Last Filed: 03/01/18 09:26> Subjective - Date & Time of Evaluation Date of Evaluation: 03/01/18 Time of Evaluation: 07:15 - Subjective Subjective: PGY-4 GI Fellow Prog Note Pt with Tm of 101 overnight, but states abd pain feeling much better this AM requesting diet to be advance. Reports some loose stools but attributes that to not eating much in a few days. 5 point ROS negative other than stated above Objective - Vital Signs/Intake and Output Vital Signs (last 24 hours): Temp Pulse Resp BP Pulse Ox 98.2 F 90 20 119/84 96 02/28/18 23:15 02/28/18 23:15 02/28/18 21:53 02/28/18 21:53 02/28/18 21:53 Intake and Output: 02/28/18 03/01/18 18:59 06:59 Intake Total 660 Balance 660 - Medications Medications: Current Medications Acetaminophen (Tylenol 325mg Tab) 650 mg PO Q6H PRN PRN Reason: Fever >100.4 F Last Admin: 02/28/18 21:07 Dose: 650 mg Aspirin (Ecotrin) 81 mg PO DAILY [facility] Last Admin: 02/28/18 10:01 Dose: 81 mg Atorvastatin Calcium (Lipitor) 80 mg PO DIN [facility] Last Admin: 02/28/18 18:05 Dose: 80 mg Famotidine (Pepcid) 20 mg IVP DAILY [facility] Last Admin: 02/28/18 10:06 Dose: 20 mg Piperacillin Sod/Tazobactam Sod (Zosyn 3.375 In Ns 100ml) 100 mls @ 200 mls/hr IVPB Q6 [facility] PRN Reason: Protocol Stop: 03/07/18 12:01 Last Admin: 03/01/18 05:44 Dose: 200 mls/hr Sodium Chloride (Sodium Chloride 0.9%) 1,000 mls @ 50 mls/hr IV .Q20H [facility] Metoprolol Tartrate (Lopressor) 25 mg PO BRKDIN [facility] Last Admin: 02/28/18 18:05 Dose: 25 mg Morphine Sulfate (Morphine) 2 mg IVP Q4H PRN PRN Reason: Pain, severe (8-10) Ticagrelor (Brilinta) 60 mg PO BID [facility] Last Admin: 02/28/18 18:07 Dose: 60 mg - Labs Labs: 02/28/18 04:15 PT 12.9 SECONDS (9.4-12.5) H 02/27/18 22:01 INR 1.13 (0.93-1.08) H 02/27/18 22:01 APTT 27.1 Seconds (25.1-36.5) 02/27/18 22:01 - Constitutional Appears: Well, Non-toxic - Head Exam Head Exam: ATRAUMATIC, NORMAL INSPECTION - Eye Exam Eye Exam: EOMI. absent: Conjunctival injection, Scleral icterus - Respiratory Exam Respiratory Exam: NORMAL BREATHING PATTERN. absent: Accessory Muscle Use, Stridor - Cardiovascular Exam Cardiovascular Exam: REGULAR RHYTHM, RRR - GI/Abdominal Exam GI & Abdominal Exam: Soft, Tenderness (LLQ), Normal Bowel Sounds. absent: Bruit , Distended, Firm, Guarding, Rigid, Mass, Pulsatile Mass Assessment and Plan - Assessment and Plan (Free Text) Assessment: 43 yo Hisp Male with CAD s/p stenting on 07/08/17 presenting with abd pain and fever. # Sepsis due to Acute Diverticulitis: 1st episode. Complicated by possible phlegmon/abscess. +Fever, +WBCs, +tachycardia on admission. No prior endoscopies. Will need outpatient CSPY; however, given DAPT for recent stent placement (06/2617), will need to be on for at least one year uninterrupted. Therefore, will need to discuss risk/benefits regarding time of outpatient. If done prior to 07/09/18, will not be able to take biopsies given DAPT. # CAD s/p stent to LAD 07/08/17: Continue ASA and ticagrelor x1 year. # H/o EtOH Abuse, h/o EtOH induced pancreatitis: Counseled pt on recommended EtOH use. Plan: - Agree with Abx to cover anaerobes and GNRs, previously on Cipro+Metro -> Pip/ Tazo --- IV for now, but when able to take PO will need total of 14 day course - Can advance to Full Liq Diet but would monitor symptoms closely - Instructed to eat low fiber diet in this acute setting; however, as symptoms improve should eat high fiber - Agree with Surgery Consult - Counseled pt on need to avoid constipation. Miralax for daily bowel movements in future if needed - Will f/u with Dr. Hein as outpatient in March to discuss timing of CSPY, likely 1st week of July Pt seen and staffed with Dr. Hein <Gregor Hein - Last Filed: 03/01/18 09:55> Objective - Vital Signs/Intake and Output Vital Signs (last 24 hours): Temp Pulse Resp BP Pulse Ox 98.6 F 86 20 112/74 96 03/01/18 06:00 03/01/18 06:00 03/01/18 06:00 03/01/18 09:38 03/01/18 06:00 Intake and Output: 03/01/18 03/01/18 06:59 18:59 Intake Total 660 Balance 660 - Medications Medications: Current Medications Acetaminophen (Tylenol 325mg Tab) 650 mg PO Q6H PRN PRN Reason: Fever >100.4 F Last Admin: 02/28/18 21:07 Dose: 650 mg Aspirin (Ecotrin) 81 mg PO DAILY [facility] Last Admin: 03/01/18 09:38 Dose: 81 mg Atorvastatin Calcium (Lipitor) 80 mg PO DIN [facility] Last Admin: 02/28/18 18:05 Dose: 80 mg Famotidine (Pepcid) 20 mg IVP DAILY [facility] Last Admin: 03/01/18 09:40 Dose: 20 mg Piperacillin Sod/Tazobactam Sod (Zosyn 3.375 In Ns 100ml) 100 mls @ 200 mls/hr IVPB Q6 YO PRN Reason: Protocol Stop: 03/07/18 12:01 Last Admin: 03/01/18 05:44 Dose: 200 mls/hr Sodium Chloride (Sodium Chloride 0.9%) 1,000 mls @ 50 mls/hr IV .Q20H [facility] Metoprolol Tartrate (Lopressor) 25 mg PO BRKDIN [facility] Last Admin: 03/01/18 09:38 Dose: 25 mg Morphine Sulfate (Morphine) 2 mg IVP Q4H PRN PRN Reason: Pain, severe (8-10) Ticagrelor (Brilinta) 60 mg PO BID [facility] Last Admin: 03/01/18 09:38 Dose: 60 mg - Labs Labs: 03/01/18 06:45 03/01/18 06:45 PT 12.9 SECONDS (9.4-12.5) H 02/27/18 22:01 INR 1.13 (0.93-1.08) H 02/27/18 22:01 APTT 27.1 Seconds (25.1-36.5) 02/27/18 22:01 Attending/Attestation - Attestation I have personally seen and examined this patient.: Yes I have fully participated in the care of the patient.: Yes I have reviewed all pertinent clinical information, including history, physical exam and plan: Yes Notes (Text): 03/01/18 09:51 I have seen and examined patient with GI fellow. No acute events overnight, he is seen resting in bed comfortably. He continues to endorse bilateral lower quadrant abdominal pain though improved compared to yesterday. He denies nausea , vomting and is tolerating PO liquids without difficulty. He had a low grade temperature last night to 100.3, three loose bowel movements overnight. CAD s/p stent on brilinta Abdominal pain - acute complicated diverticulitis with ayan-colonic abscess - Advance to full liquid diet as tolerated - Continue with antibiotic therapy - Monitor blood cultures, negative thus far - Follow up surgical recommendations - Will arrange for outpatient follow up after acute symptoms have resolved. He would require colonoscopy evaluation, will likely perform in the beginning of July during which time he can safely be off Brilinta. Will continue to monitor patient clinical course.
[2018-03-01 07:13] LABS: BASO # 0.02 K/mm3 (0.0-2.0); BASO % 0.1 % (0.0-3.0); EOS # 0.1 (0.0-0.7); GRAN # 11.74 (1.4-6.5); GRAN % 84.4 % (50.0-68.0); LYMPH # 1.3 (1.2-3.4); LYMPH % 9.4 % (22.0-35.0); MEAN CELL VOLUME 102.3 fl (80.0-105.0); MEAN CORPUSCULAR HEMOGLOBIN 34.6 pg (25.0-35.0); MEAN CORPUSCULAR HGB CONC 33.8 g/dl (31.0-37.0); MEAN PLATELET VOLUME 9.4 fl (7.0-11.0); MONO # 0.7 (0.1-0.6); MONO % 5.1 % (1.0-6.0); RBC 3.47 10^6/uL (3.5-6.1); RED CELL DISTRIBUTION WIDTH 12.2 % (11.5-14.5); WHITE BLOOD COUNT 13.9 10^3/ul (4.5-11.0)
[2018-03-01 07:26] LABS: ALB/GLOB RATIO 1.1 (1.1-1.8); ALBUMIN 3.7 g/dL (3.0-4.8); ALT/SGPT 25 U/L (7-56); AST/SGOT 26 U/L (17-59); BLOOD UREA NITROGEN 6 mg/dL (7-21); CALCIUM 8.9 mg/dL (8.4-10.5); GFR AFRICAN-AMERICAN > 60; GFR NON-AFRICAN AMERICAN > 60
--- NOTE | 2018-03-01 11:22 | CP.PCM.PN ---
Subjective - Date & Time of Evaluation Date of Evaluation: 03/01/18 Time of Evaluation: 07:45 - Subjective Subjective: General surgery progress note for Dr. Serrano Patient seen and examined this AM at bedside. Patient is recovering well, is OOBTC and walking around room. Patient states that abd pain is still present but much less, he denies n/v/f/c. he is continuing to have diarrhea. patient is concerned about going home by sunday so that he can return to work on sunday. Objective - Vital Signs/Intake and Output Vital Signs (last 24 hours): Temp Pulse Resp BP Pulse Ox 98.6 F 86 20 112/74 96 03/01/18 06:00 03/01/18 06:00 03/01/18 06:00 03/01/18 09:38 03/01/18 06:00 Intake and Output: 03/01/18 03/01/18 06:59 18:59 Intake Total 660 Balance 660 - Medications Medications: Current Medications Acetaminophen (Tylenol 325mg Tab) 650 mg PO Q6H PRN PRN Reason: Fever >100.4 F Last Admin: 02/28/18 21:07 Dose: 650 mg Aspirin (Ecotrin) 81 mg PO DAILY [facility] Last Admin: 03/01/18 09:38 Dose: 81 mg Atorvastatin Calcium (Lipitor) 80 mg PO DIN [facility] Last Admin: 02/28/18 18:05 Dose: 80 mg Famotidine (Pepcid) 20 mg IVP DAILY [facility] Last Admin: 03/01/18 09:40 Dose: 20 mg Piperacillin Sod/Tazobactam Sod (Zosyn 3.375 In Ns 100ml) 100 mls @ 200 mls/hr IVPB Q6 [facility] PRN Reason: Protocol Stop: 03/07/18 12:01 Last Admin: 03/01/18 05:44 Dose: 200 mls/hr Sodium Chloride (Sodium Chloride 0.9%) 1,000 mls @ 50 mls/hr IV .Q20H [facility] Metoprolol Tartrate (Lopressor) 25 mg PO BRKDIN [facility] Last Admin: 03/01/18 09:38 Dose: 25 mg Morphine Sulfate (Morphine) 2 mg IVP Q4H PRN PRN Reason: Pain, severe (8-10) Ticagrelor (Brilinta) 60 mg PO BID [facility] Last Admin: 03/01/18 09:38 Dose: 60 mg - Labs Labs: 03/01/18 06:45 03/01/18 06:45 PT 12.9 SECONDS (9.4-12.5) H 02/27/18 22:01 INR 1.13 (0.93-1.08) H 02/27/18 22:01 APTT 27.1 Seconds (25.1-36.5) 02/27/18 22:01 - Constitutional Appears: Well, Non-toxic, No Acute Distress - Head Exam Head Exam: ATRAUMATIC, NORMOCEPHALIC - ENT Exam ENT Exam: Mucous Membranes Moist - Respiratory Exam Respiratory Exam: NORMAL BREATHING PATTERN - GI/Abdominal Exam GI & Abdominal Exam: Guarding, Soft, Tenderness. absent: Distended, Firm, Rigid , Rebound Additional comments: mild LLQ and RLQ tenderness with minimal guarding improved from admission - Extremities Exam Extremities Exam: absent: Calf Tenderness, Pedal Edema - Neurological Exam Neurological Exam: Alert, Awake, Oriented x3 - Psychiatric Exam Psychiatric exam: Normal Affect, Normal Mood - Skin Skin Exam: Dry, Intact, Normal Color, Warm Assessment and Plan - Assessment and Plan (Free Text) Assessment: 43 yr old male with acute diverticulitis Plan: - pt improving and tolerating diet will advance to clears - pt will need CT with PO contrast before discharge - pt will need to follow up with GI for colonoscopy in 8 weeks -discussed with Dr. Zach Kim, PGY1
--- NOTE | 2018-03-01 15:35 | CP.PCM.PN ---
Subjective - Date & Time of Evaluation Date of Evaluation: 03/01/18 Time of Evaluation: 13:05 - Subjective Subjective: Abdominal pain is a little better, no fevers this morning but had fever last night, not in distress, no nausea or diarrhea. Objective - Vital Signs/Intake and Output Vital Signs (last 24 hours): Temp Pulse Resp BP Pulse Ox 98.6 F 86 20 112/74 96 03/01/18 06:00 03/01/18 06:00 03/01/18 06:00 03/01/18 09:38 03/01/18 06:00 Intake and Output: 03/01/18 03/01/18 06:59 18:59 Intake Total 660 Balance 660 - Medications Medications: Current Medications Acetaminophen (Tylenol 325mg Tab) 650 mg PO Q6H PRN PRN Reason: Fever >100.4 F Last Admin: 02/28/18 21:07 Dose: 650 mg Aspirin (Ecotrin) 81 mg PO DAILY [facility] Last Admin: 03/01/18 09:38 Dose: 81 mg Atorvastatin Calcium (Lipitor) 80 mg PO DIN [facility] Last Admin: 02/28/18 18:05 Dose: 80 mg Famotidine (Pepcid) 20 mg IVP DAILY [facility] Last Admin: 03/01/18 09:40 Dose: 20 mg Piperacillin Sod/Tazobactam Sod (Zosyn 3.375 In Ns 100ml) 100 mls @ 200 mls/hr IVPB Q6 YO PRN Reason: Protocol Stop: 03/07/18 12:01 Last Admin: 03/01/18 05:44 Dose: 200 mls/hr Sodium Chloride (Sodium Chloride 0.9%) 1,000 mls @ 50 mls/hr IV .Q20H [facility] Metoprolol Tartrate (Lopressor) 25 mg PO BRKDIN [facility] Last Admin: 03/01/18 09:38 Dose: 25 mg Morphine Sulfate (Morphine) 2 mg IVP Q4H PRN PRN Reason: Pain, severe (8-10) Ticagrelor (Brilinta) 60 mg PO BID [facility] Last Admin: 03/01/18 09:38 Dose: 60 mg - Labs Labs: 03/01/18 06:45 03/01/18 06:45 PT 12.9 SECONDS (9.4-12.5) H 02/27/18 22:01 INR 1.13 (0.93-1.08) H 02/27/18 22:01 APTT 27.1 Seconds (25.1-36.5) 02/27/18 22:01 - Constitutional Appears: Non-toxic - Head Exam Head Exam: NORMAL INSPECTION - Respiratory Exam Respiratory Exam: Decreased Breath Sounds. absent: Rales - Cardiovascular Exam Cardiovascular Exam: +S1, +S2 - GI/Abdominal Exam GI & Abdominal Exam: Soft, Tenderness (mild, LLQ). absent: Distended, Firm, Guarding, Rigid, Rebound Assessment and Plan - Assessment and Plan (Free Text) Plan: Assessment Sepsis due to acute sigmoid diverticulitis with microperforation and phlegmon formation HTN dyslipidemia CAD S/P PCI Plan continue Zosyn day 2; blood cx are negative; continue to monitor clinical response and advancement in diet follow up HIV test because of his age
[2018-03-02] MEDS: Piperacillin/Tazobact 3.375 gm 100 ML IVPB SCH ×3 (05:17→17:07)
[2018-03-02] MEDS: Sodium Chloride 0.9% 1,000 ML IV SCH ×2 (05:19→12:47)
[2018-03-02 07:54] LABS: BASO # 0.02 K/mm3 (0.0-2.0); BASO % 0.2 % (0.0-3.0); EOS # 0.1 (0.0-0.7); EOS % 1.4 % (1.5-5.0); GRAN # 7.44 (1.4-6.5); GRAN % 75.4 % (50.0-68.0); HEMOGLOBIN 11.8 g/dL (14.0-18.0); LYMPH # 1.8 (1.2-3.4); LYMPH % 17.7 % (22.0-35.0); MEAN CELL VOLUME 102.3 fl (80.0-105.0); MEAN CORPUSCULAR HEMOGLOBIN 34.2 pg (25.0-35.0); MEAN CORPUSCULAR HGB CONC 33.4 g/dl (31.0-37.0); MEAN PLATELET VOLUME 9.5 fl (7.0-11.0); MONO # 0.5 (0.1-0.6); MONO % 5.3 % (1.0-6.0); RBC 3.45 10^6/uL (3.5-6.1); RED CELL DISTRIBUTION WIDTH 12.1 % (11.5-14.5); WHITE BLOOD COUNT 9.9 10^3/ul (4.5-11.0)
[2018-03-02 08:12] LABS: ALB/GLOB RATIO 1.1 (1.1-1.8); ALBUMIN 3.7 g/dL (3.0-4.8); ALT/SGPT 28 U/L (7-56); AST/SGOT 30 U/L (17-59); BLOOD UREA NITROGEN 5 mg/dL (7-21); GFR AFRICAN-AMERICAN > 60; GFR NON-AFRICAN AMERICAN > 60
--- NOTE | 2018-03-02 09:40 | CP.PCM.PN ---
Subjective - Date & Time of Evaluation Date of Evaluation: 03/02/18 Time of Evaluation: 07:30 - Subjective Subjective: Patient seen and examined this am at bedside. He has been OOBTC and walking the floor. He continues to c/o mild abdominal pain that is improving and diarrhea this morning. Patient denies fevers, chills, n/v. Objective - Vital Signs/Intake and Output Vital Signs (last 24 hours): Temp Pulse Resp BP Pulse Ox 98 F 89 20 116/75 100 03/02/18 08:23 03/02/18 08:28 03/02/18 08:23 03/02/18 08:28 03/02/18 08:23 Intake and Output: 03/02/18 03/02/18 06:59 18:59 Intake Total 1260 Balance 1260 - Medications Medications: Current Medications Acetaminophen (Tylenol 325mg Tab) 650 mg PO Q6H PRN PRN Reason: Fever >100.4 F Last Admin: 02/28/18 21:07 Dose: 650 mg Aspirin (Ecotrin) 81 mg PO DAILY [facility] Last Admin: 03/01/18 09:38 Dose: 81 mg Atorvastatin Calcium (Lipitor) 80 mg PO DIN [facility] Last Admin: 03/01/18 17:02 Dose: 80 mg Famotidine (Pepcid) 20 mg IVP DAILY [facility] Last Admin: 03/01/18 09:40 Dose: 20 mg Piperacillin Sod/Tazobactam Sod (Zosyn 3.375 In Ns 100ml) 100 mls @ 200 mls/hr IVPB Q6 YO PRN Reason: Protocol Stop: 03/07/18 12:01 Last Admin: 03/02/18 05:17 Dose: 200 mls/hr Sodium Chloride (Sodium Chloride 0.9%) 1,000 mls @ 50 mls/hr IV .Q20H [facility] Last Admin: 03/02/18 05:19 Dose: 50 mls/hr Metoprolol Tartrate (Lopressor) 25 mg PO BRKDIN [facility] Last Admin: 03/02/18 08:28 Dose: 25 mg Ticagrelor (Brilinta) 60 mg PO BID [facility] Last Admin: 03/01/18 17:02 Dose: 60 mg - Labs Labs: 03/02/18 07:00 03/02/18 07:00 PT 12.9 SECONDS (9.4-12.5) H 02/27/18 22:01 INR 1.13 (0.93-1.08) H 02/27/18 22:01 APTT 27.1 Seconds (25.1-36.5) 02/27/18 22:01 - Constitutional Appears: Well, Non-toxic, No Acute Distress - Head Exam Head Exam: ATRAUMATIC, NORMOCEPHALIC - ENT Exam ENT Exam: Mucous Membranes Moist - Respiratory Exam Respiratory Exam: NORMAL BREATHING PATTERN - GI/Abdominal Exam GI & Abdominal Exam: Soft, Tenderness. absent: Rigid, Rebound - Extremities Exam Extremities Exam: absent: Calf Tenderness, Pedal Edema - Neurological Exam Neurological Exam: Alert, Awake, Oriented x3 - Psychiatric Exam Psychiatric exam: Normal Affect, Normal Mood - Skin Skin Exam: Dry, Intact, Normal Color, Warm Assessment and Plan - Assessment and Plan (Free Text) Assessment: 43 yr old male with acute diverticulitis and associated phlegmon on CT Plan: - advance to low residue diet, monitor for n/v - CT with PO and IV contrast today - bilirubin improved to 1.4 today - possible D/c in AM - discussed plan with Dr. Zach Kim, PGY 1
[2018-03-02] MEDS ORDERED: Barium Sulfate Susp 2.1% w/v, 2.0% w/w 450 mL Bottle PO ONE (10:36)
--- NOTE | 2018-03-02 13:21 | CP.PCM.PN ---
Subjective - Date & Time of Evaluation Date of Evaluation: 03/02/18 Time of Evaluation: 11:00 - Subjective Subjective: Feels well. No fever, nausea, vomiting or abdominal pain. Loose stool for past day. Hungry. Wants to eat Objective - Vital Signs/Intake and Output Vital Signs (last 24 hours): Temp Pulse Resp BP Pulse Ox 98 F 89 20 116/75 100 03/02/18 08:23 03/02/18 08:28 03/02/18 08:23 03/02/18 08:28 03/02/18 08:23 Intake and Output: 03/02/18 03/02/18 06:59 18:59 Intake Total 1260 Balance 1260 - Medications Medications: Current Medications Acetaminophen (Tylenol 325mg Tab) 650 mg PO Q6H PRN PRN Reason: Fever >100.4 F Last Admin: 02/28/18 21:07 Dose: 650 mg Aspirin (Ecotrin) 81 mg PO DAILY [facility] Last Admin: 03/02/18 09:48 Dose: 81 mg Atorvastatin Calcium (Lipitor) 80 mg PO DIN [facility] Last Admin: 03/01/18 17:02 Dose: 80 mg Famotidine (Pepcid) 20 mg IVP DAILY [facility] Last Admin: 03/02/18 09:48 Dose: 20 mg Piperacillin Sod/Tazobactam Sod (Zosyn 3.375 In Ns 100ml) 100 mls @ 200 mls/hr IVPB Q6 YO PRN Reason: Protocol Stop: 03/07/18 12:01 Last Admin: 03/02/18 12:47 Dose: 200 mls/hr Sodium Chloride (Sodium Chloride 0.9%) 1,000 mls @ 50 mls/hr IV .Q20H [facility] Last Admin: 03/02/18 12:47 Dose: 50 mls/hr Metoprolol Tartrate (Lopressor) 25 mg PO BRKDIN [facility] Last Admin: 03/02/18 08:28 Dose: 25 mg Ticagrelor (Brilinta) 60 mg PO BID [facility] Last Admin: 03/02/18 09:48 Dose: 60 mg - Labs Labs: 03/02/18 07:00 03/02/18 07:00 PT 12.9 SECONDS (9.4-12.5) H 02/27/18 22:01 INR 1.13 (0.93-1.08) H 02/27/18 22:01 APTT 27.1 Seconds (25.1-36.5) 02/27/18 22:01 - Constitutional Appears: Well, No Acute Distress - Head Exam Head Exam: ATRAUMATIC, NORMAL INSPECTION, NORMOCEPHALIC - Eye Exam Eye Exam: EOMI, Normal appearance, PERRL - ENT Exam ENT Exam: Mucous Membranes Moist, Normal Exam - Respiratory Exam Respiratory Exam: Clear to Ausculation Bilateral, NORMAL BREATHING PATTERN - Cardiovascular Exam Cardiovascular Exam: REGULAR RHYTHM, +S1, +S2. absent: Murmur - GI/Abdominal Exam GI & Abdominal Exam: Soft, Normal Bowel Sounds. absent: Tenderness Additional comments: No guarding. Pain on deep palpation in LRQ Assessment and Plan - Assessment and Plan (Free Text) Assessment: 43 yr old M with CAD on brilinta for stent alcohol dependance and history of pancreatitis admitted with acute complicated diverticulitis now resolving. Tolerated clear liquid diet. No s/s of peritoneal signs. Follow up surgical recommendations. Will arrange for outpatient follow up after acute symptoms have resolved. He would require colonoscopy evaluation, will likely perform in the beginning of July during which time he can safely be off Brilinta. No Gi intervention. Will sign off.
[2018-03-02 15:07] VITALS: TEMP 98.7; O2SAT 99
[2018-03-02] MEDS ORDERED: Iohexol 350 MG/100 ML VIAL ONE (15:13)
--- NOTE | 2018-03-02 15:45 | PN ---
DATE: 03/02/2018 SUBJECTIVE: The patient is in bed, in no acute distress, nontoxic. PHYSICAL EXAMINATION: VITAL SIGNS: Temperature is 98, blood pressure is 116/70, respiratory rate of 18. HEENT: Unremarkable. NECK: Supple. LUNGS: Have decreased breath sounds. HEART: Normal S1 and S2. ABDOMEN: Soft, nontender. LABORATORY DATA: Reveals the white count is down to 9.9, hemoglobin of 11 and chemistries are noted and the patient is on Zosyn. The patient is scheduled for a CAT scan of the abdomen and pelvis for today. Microbiology reveals the blood cultures are negative. ASSESSMENT AND PLAN: This is a 43-year-old male who was seen early this morning, doing well, in 573, bed 1 with sepsis secondary to acute sigmoid diverticulitis with microperforation, on Zosyn and the patient has dyslipidemia, coronary artery disease, long-time smoker. We will continue Zosyn pending repeat CAT scan results. Preston Morris MD
--- NOTE | 2018-03-02 15:59 | CP.PCM.PN ---
<Srinivasa Mcclain - Last Filed: 03/02/18 15:54> Subjective - Date & Time of Evaluation Date of Evaluation: 03/02/18 Time of Evaluation: 15:54 - Subjective Subjective: Srinivasa Mcclain D.O. PGY1 -- Beauty Consultant -- Medicine Progress Note Patient reports that he is feeling better today. Patient says his abdominal pain has improved. Patient was able to get out of bed and walk without difficulty. Patient says he is currently still having diarrhea, but attributes this to change in diet while in the hospital. Review of systems is otherwise negative for nausea, vomiting, chills, shortness of breath and/or chest pain. Objective - Vital Signs/Intake and Output Vital Signs (last 24 hours): Temp Pulse Resp BP Pulse Ox 98.7 F 90 20 118/78 99 03/02/18 15:06 03/02/18 15:06 03/02/18 15:06 03/02/18 15:06 03/02/18 15:06 Intake and Output: 03/02/18 03/02/18 06:59 18:59 Intake Total 1260 900 Balance 1260 900 - Medications Medications: Current Medications Acetaminophen (Tylenol 325mg Tab) 650 mg PO Q6H PRN PRN Reason: Fever >100.4 F Last Admin: 02/28/18 21:07 Dose: 650 mg Aspirin (Ecotrin) 81 mg PO DAILY [facility] Last Admin: 03/02/18 09:48 Dose: 81 mg Atorvastatin Calcium (Lipitor) 80 mg PO DIN [facility] Last Admin: 03/01/18 17:02 Dose: 80 mg Famotidine (Pepcid) 20 mg IVP DAILY [facility] Last Admin: 03/02/18 09:48 Dose: 20 mg Piperacillin Sod/Tazobactam Sod (Zosyn 3.375 In Ns 100ml) 100 mls @ 200 mls/hr IVPB Q6 YO PRN Reason: Protocol Stop: 03/07/18 12:01 Last Admin: 03/02/18 12:47 Dose: 200 mls/hr Metoprolol Tartrate (Lopressor) 25 mg PO BRKDIN [facility] Last Admin: 03/02/18 08:28 Dose: 25 mg Ticagrelor (Brilinta) 60 mg PO BID [facility] Last Admin: 03/02/18 09:48 Dose: 60 mg - Labs Labs: 03/02/18 07:00 03/02/18 07:00 PT 12.9 SECONDS (9.4-12.5) H 02/27/18 22:01 INR 1.13 (0.93-1.08) H 02/27/18 22:01 APTT 27.1 Seconds (25.1-36.5) 02/27/18 22:01 - Constitutional Appears: Non-toxic, No Acute Distress - Head Exam Head Exam: ATRAUMATIC, NORMAL INSPECTION, NORMOCEPHALIC - ENT Exam ENT Exam: Mucous Membranes Moist, Normal Exam - Neck Exam Neck Exam: Normal Inspection - Respiratory Exam Respiratory Exam: NORMAL BREATHING PATTERN. absent: Wheezes, Respiratory Distress - Cardiovascular Exam Cardiovascular Exam: RRR. absent: Tachycardia, Gallop - GI/Abdominal Exam GI & Abdominal Exam: Soft, Tenderness (mild, to palpation of left lower quadrant ), Normal Bowel Sounds. absent: Firm, Guarding, Rigid, Mass - Extremities Exam Extremities Exam: Full ROM, Normal Inspection. absent: Pedal Edema - Back Exam Back Exam: NORMAL INSPECTION - Neurological Exam Neurological Exam: Alert, Awake, Normal Gait, Oriented x3 - Psychiatric Exam Psychiatric exam: Normal Affect, Normal Mood - Skin Skin Exam: Dry, Intact, Normal Color, Warm Assessment and Plan - Assessment and Plan (Free Text) Assessment: 43-year-old male with past medical history of hypertension, hyperlipidemia, coronary artery disease (CAD) status post stent placement in 06/2017 and on dual antiplatelet therapy presents to [facility] Department for a chief complaint of suprapubic pain, and was subsequently admitted for evaluation and treatment of acute diverticulitis. Acute Diverticulitis with possible phlegmon - Repeat CT abdomen and pelvis with PO and IV contrast obtained, per surgery recommendation; Report pending - CT abdomen and pelvis with contrast and on 02/27 showed acute sigmoid diverticulitis with micro perforations/extraluminal phlegmon - Antibiotics were changed to Zosyn + Flagyl, per ID recommendations - Patient advanced to altered GI/Hepatic diet - Discontinued morphine for pain - Continue acetaminophen 650 as needed for fever / moderate pain - Discontinued IVF - Blood cultures: negative x24 hours - C-Diff toxin and antigen negative - Urine culture shows no growth x24 hours - Repeat colonoscopy in July once patient is able to be off Brilinta, as per GI recommendations Pulmonary nodule - No signs/ symptoms at this time - Given smoking history patient will benefit from repeat low resolution CT in 12 months CAD status post LAD stent; 06/29 - EF 35-39% as per 2017 Echo Stress tests - Continue ASA and Brillinta 60BID History of Hypertension - Patient is normotensive - Continue home meds (metoprolol) History of Hyperlipidemia - Continue home statin DVT/ GI PPX: SCD/ Famotidine Patient seen and case discussed with Attending Physician Dr. Babar Mcclain PGY1 <Chery Eckert R - Last Filed: 03/02/18 17:38> Objective - Vital Signs/Intake and Output Vital Signs (last 24 hours): Temp Pulse Resp BP Pulse Ox 98.7 F 68 20 134/96 H 99 03/02/18 15:06 03/02/18 17:12 03/02/18 15:06 03/02/18 17:12 03/02/18 15:06 Intake and Output: 03/02/18 03/02/18 06:59 18:59 Intake Total 1260 900 Balance 1260 900 - Medications Medications: Current Medications Acetaminophen (Tylenol 325mg Tab) 650 mg PO Q6H PRN PRN Reason: Fever >100.4 F Last Admin: 02/28/18 21:07 Dose: 650 mg Aspirin (Ecotrin) 81 mg PO DAILY [facility] Last Admin: 03/02/18 09:48 Dose: 81 mg Atorvastatin Calcium (Lipitor) 80 mg PO DIN [facility] Last Admin: 03/02/18 17:11 Dose: 80 mg Famotidine (Pepcid) 20 mg IVP DAILY [facility] Last Admin: 03/02/18 09:48 Dose: 20 mg Piperacillin Sod/Tazobactam Sod (Zosyn 3.375 In Ns 100ml) 100 mls @ 200 mls/hr IVPB Q6 YO PRN Reason: Protocol Stop: 03/07/18 12:01 Last Admin: 03/02/18 17:07 Dose: 200 mls/hr Metoprolol Tartrate (Lopressor) 25 mg PO BRKDIN [facility] Last Admin: 03/02/18 17:12 Dose: 25 mg Ticagrelor (Brilinta) 60 mg PO BID [facility] Last Admin: 03/02/18 17:11 Dose: 60 mg - Labs Labs: 03/02/18 07:00 03/02/18 07:00 PT 12.9 SECONDS (9.4-12.5) H 02/27/18 22:01 INR 1.13 (0.93-1.08) H 02/27/18 22:01 APTT 27.1 Seconds (25.1-36.5) 02/27/18 22:01 Attending/Attestation - Attestation I have personally seen and examined this patient.: Yes I have fully participated in the care of the patient.: Yes I have reviewed all pertinent clinical information, including history, physical exam and plan: Yes Notes (Text): Patient seen and examined by me at 09:20AM with resident. Case including HPI, physical exam, and physical assessment and plan discussed with resident. Agree with above with following additions/corrections. Patient states he is doing pretty good. He is tolerating diet. Patient is having diarrhea. States his abdomen now feels "sore "like he "worked out at the gym." No nausea or vomiting. Patient denies chest pain or shortness of breath. Patient afebrile. No headaches or dizziness. No dysuria. Physical exam: Gen: Awake and alert sitting up in bed in no acute distress HEENT: Normocephalic atraumatic. Extraocular muscles intact, pupils equal reactive. Oropharynx is pink and moist, no pharyngeal erythema or exudate appreciated. Neck is supple. Cardiovascular: Normal rhythm. Normal S1-S2. No murmurs, rubs, or gallops appreciated Pulmonary: Normal respiratory effort. No rhonchi, rales or wheezing appreciated. Gastrointestinal: Soft, positive mild tenderness lower abdomen, nondistended, positive bowel sounds all 4 quadrants, no guarding Musculoskeletal: Moves all extremities, no calf tenderness Central nervous system: AAO x 3. 5/5 muscle strength all extremities. CN 2-12 grossly intact Dermatologic: Skin warm and dry Assessment and plan: Patient is a 43-year-old male with past medical history significant or hypertension, hyperlipidemia, coronary artery disease that presented to the emergency room with suprapubic and lower abdominal pain. Patient was found to have acute diverticulitis. 1. Acute sigmoid diverticulitis with microperforation/extraluminal phlegmon. Seen on CT abdomen and pelvis. Surgery following, recommendations appreciated. ID following, recommendations appreciated. GI following, recommendations appreciated. Afebrile. Leukocytosis resolved. Continue Zosyn. We'll get repeat CT abdomen and pelvis per surgical team. 2. Leukocytosis. Secondary to #1. Resolved. Continue Zosyn. Continue to monitor 3. Abdominal pain. Secondary to #1. Improving. Continue to monitor 4. Pulmonary nodule. Incidental finding. Patient will need to follow-up with primary care doctor for outpatient CT of the chest 5. History of coronary artery disease. Status post stent. Continue with aspirin , Brilinta, Lopressor, and lipitor 6. Hypercholesterolemia. Continue Lipitor 7. Essential hypertension. Continue Lopressor Case was discussed in detail with patient and medical support assistant at bedside regarding current diagnosis and treatment plan.
--- NOTE | 2018-03-02 16:32 | CT ---
Date of service: 03/02/2018 PROCEDURE: CT Abdomen and Pelvis with contrast HISTORY: diverticulitis, f/u on microperforation COMPARISON: 02/27/2018. TECHNIQUE: CT scan of the abdomen and pelvis was performed after administration of intravenous contrast. Oral contrast was administered. Coronal and sagittal reformatted images were obtained. Contrast dose: 100 mL Omnipaque 350 Radiation dose: Total exam DLP = 694.42 mGy-cm. This CT exam was performed using one or more of the following dose reduction techniques: Automated exposure control, adjustment of the mA and/or kV according to patient size, and/or use of iterative reconstruction technique. FINDINGS: LOWER THORAX: The visualized lungs are clear. LIVER: Normal in size with homogeneous enhancement. No gross lesion or ductal dilatation. GALLBLADDER AND BILE DUCTS: The gallbladder is contracted. PANCREAS: Normal in size with homogeneous enhancement. No gross lesion or ductal dilatation. SPLEEN: Normal in size with homogeneous enhancement. ADRENALS: No discrete nodule. KIDNEYS AND URETERS: Normal in size with homogeneous enhancement. No hydronephrosis. No solid mass. VASCULATURE: No aortic aneurysm. BOWEL: The small bowel loops are normal in caliber. There is redemonstration of segmental circumferential mural thickening in the sigmoid colon with significant pericolonic inflammatory changes, worse since the prior examination. There is interval development of 3.0 x 1.8 cm fluid collection anterior in superior to the inflamed sigmoid colon. No micro perforation or abscess. APPENDIX: Normal appendix. PERITONEUM: No free fluid. No free air. LYMPH NODES: No enlarged lymph nodes. BLADDER: Partially decompressed. REPRODUCTIVE: Unremarka the prostate gland is normal in size. BONES: No acute fracture. Within normal limits for the patient's age. OTHER FINDINGS: None. IMPRESSION: 1. Interval worsening inflammatory changes in known segmental acute sigmoid diverticulitis. 2. Interval development of 3.0 x 1.8 cm fluid collection anterior and superior to the sigmoid colon. No micro perforation or abscess.
[2018-03-02 17:13] VITALS: BP 134/96; PULSE 68
--- NOTE | 2018-03-02 17:26 | CP.PCM.DIS ---
<Srinivasa Mcclain - Last Filed: 03/03/18 16:30> Provider - Provider Date of Admission: 02/27/18 23:44 Attending physician: Chery Eckert DO Primary care physician: Jaqui Hall MD Consults: Infectious Disease: Dr. Morris General Surgery: Dr. Serrano Gastroenterology: Dr. Pak Time Spent in preparation of Discharge (in minutes): 45 Diagnosis - Discharge Diagnosis (1) Diverticulitis Status: Acute Priority: High (2) Pulmonary nodule Status: Acute Priority: Medium Hospital Course - Lab Results Lab Results: Micro Results 02/28/18 21:00 Stool C. difficile Antigen & Toxin A,B (M - Final Most Recent Lab Values WBC 9.9 10^3/ul (4.5-11.0) D 03/02/18 07:00 RBC 3.45 10^6/uL (3.5-6.1) L 03/02/18 07:00 Hgb 11.8 g/dL (14.0-18.0) L 03/02/18 07:00 Hct 35.3 % (42.0-52.0) L 03/02/18 07:00 MCV 102.3 fl (80.0-105.0) 03/02/18 07:00 MCH 34.2 pg (25.0-35.0) 03/02/18 07:00 MCHC 33.4 g/dl (31.0-37.0) 03/02/18 07:00 RDW 12.1 % (11.5-14.5) 03/02/18 07:00 Plt Count 213 10^3/uL (120.0-450.0) 03/02/18 07:00 MPV 9.5 fl (7.0-11.0) 03/02/18 07:00 Gran % 75.4 % (50.0-68.0) H 03/02/18 07:00 Lymph % (Auto) 17.7 % (22.0-35.0) L 03/02/18 07:00 [place] % (Auto) 5.3 % (1.0-6.0) 03/02/18 07:00 Eos % (Auto) 1.4 % (1.5-5.0) L 03/02/18 07:00 Baso % (Auto) 0.2 % (0.0-3.0) 03/02/18 07:00 Gran # 7.44 (1.4-6.5) H 03/02/18 07:00 Lymph # (Auto) 1.8 (1.2-3.4) 03/02/18 07:00 [place] # (Auto) 0.5 (0.1-0.6) 03/02/18 07:00 Eos # (Auto) 0.1 (0.0-0.7) 03/02/18 07:00 Baso # (Auto) 0.02 K/mm3 (0.0-2.0) 03/02/18 07:00 PT 12.9 SECONDS (9.4-12.5) H 02/27/18 22:01 INR 1.13 (0.93-1.08) H 02/27/18 22:01 APTT 27.1 Seconds (25.1-36.5) 02/27/18 22:01 pO2 35 mm/Hg (30-55) 02/27/18 22:01 VBG pH 7.38 (7.32-7.43) 02/27/18 22:01 VBG pCO2 44.0 (40-60) 02/27/18 22:01 VBG HCO3 26.0 mmol/l (21-28) 02/27/18 22:01 VBG Total CO2 27.4 mmol.L (22-28) 02/27/18 22:01 VBG O2 Sat (Calc) 73.2 % (40-65) H 02/27/18 22:01 VBG Base Excess 0.5 mmol/L (0.0-2.0) 02/27/18 22:01 VBG Potassium 3.2 mmol/L (3.6-5.2) L 02/27/18 22:01 Sodium 134.0 mmol/L (132-148) 02/27/18 22: Chloride 101.0 mmol/L (98-107) 02/27/18 22:01 Glucose 98 mg/dl (75-110) 02/27/18 22:01 Lactate 0.8 mmol/L (0.7-2.1) 02/27/18 22:01 FiO2 21.0 % 02/27/18 22:01 Sodium 143 mmol/L (132-148) 03/02/18 07:00 Potassium 3.7 mmol/L (3.6-5.0) 03/02/18 07:00 Chloride 107 mmol/L (98-107) 03/02/18 07:00 Carbon Dioxide 26 mmol/L (21-33) 03/02/18 07:00 Anion Gap 14 (10-20) 03/02/18 07:00 BUN 5 mg/dL (7-21) L 03/02/18 07:00 Creatinine 0.9 mg/dl (0.8-1.5) 03/02/18 07:00 Est GFR ( Amer) > 60 03/02/18 07:00 Est GFR (Non-Af Amer) > 60 03/02/18 07:00 Random Glucose 89 mg/dL (70-110) 03/02/18 07:00 Calcium 9.0 mg/dL (8.4-10.5) 03/02/18 07:00 Total Bilirubin 1.4 mg/dL (0.2-1.3) H 03/02/18 07:00 AST 30 U/L (17-59) 03/02/18 07:00 ALT 28 U/L (7-56) 03/02/18 07:00 Alkaline Phosphatase 79 U/L (38-126) 03/02/18 07:00 Total Protein 7.1 g/dL (5.8-8.3) 03/02/18 07:00 Albumin 3.7 g/dL (3.0-4.8) 03/02/18 07:00 Globulin 3.4 gm/dL 03/02/18 07:00 Albumin/Globulin Ratio 1.1 (1.1-1.8) 03/02/18 07:00 Lipase 53 U/L (23-300) 02/27/18 22:01 Venous Blood Potassium 3.2 mmol/L (3.6-5.2) L 02/27/18 22:01 Urine Color Yellow (YELLOW) 02/27/18 22:30 Urine Appearance Clear (CLEAR) 02/27/18 22:30 Urine pH 6.0 (4.7-8.0) 02/27/18 22:30 Ur Specific [place] 1.015 (1.005-1.035) 02/27/18 22:30 Urine Protein Negative mg/dL (<30 mg/dL) 02/27/18 22:30 Urine Glucose (UA) Negative mg/dL (NEGATIVE) 02/27/18 22:30 Urine Ketones Trace mg/dL (NEGATIVE) H 02/27/18 22:30 Urine Blood Negative (NEGATIVE) 02/27/18 22:30 Urine Nitrate Negative (NEGATIVE) 02/27/18 22:30 Urine Bilirubin Negative (NEGATIVE) 02/27/18 22:30 Urine Urobilinogen 0.2 E.U./dL (<1 E.U./dL) 02/27/18 22:30 Ur Leukocyte Esterase Negative Declan/uL (NEGATIVE) 02/27/18 22:30 HIV 1&2 Ag/Ab, 4th Gen Nonreactive (Nonreactive) 03/01/18 06:45 - Hospital Course Hospital Course: 43-year-old male with past medical history of hypertension, hyperlipidemia, coronary artery disease (CAD) status post stent placement in 06/2017 and on dual antiplatelet therapy, appendicitis status-post appendectomy presents to [facility] Department for a chief complaint of suprapubic tenderness and diffuse lower abdominal pain. Patient reported associated fever, dysuria with no relief after urinating, decreased PO intake, and testicular discomfort. While in the ED the patient was found to have a rectal temperature of 102.3, and was treated with Tylenol PO. EKG was obtained and showed sinus tachycardia at [address] elevations. Chest x-ray was obtained and showed no infiltrate or effusion or free air. CBC was obtained and revealed leukocytosis, WBC 13.1. CT with IV contrast of abdomen and pelvis was obtained, and reported findings compatible with acute diverticulitis of sigmoid colon with possible phlegmon/abscess. Empiric antibiotics were started, and the patient was subsequently kept NPO and admitted for evaluation and treatment of acute diverticulitis. On day 2 antibiotics were continued, and patient was administered IVF with strict [id number] monitoring given patient's comorbidities. Patient was treated for moderate pain and fever with acetaminophen, as needed. For severe pain, the patient was treated with morphine 2gm every 4 hours, as needed. Patient complained of diarrhea. Gastroenterology (GI) was consulted. Per GI, this is the patient's first episode of acute diverticulitis complicated by formation of phlegmon/abscess, and patient will need outpatient colonoscopy, however given the patient's recent stent placement and dual antiplatelet therapy , will need to wait for at least 1 year uninterrupted before undergoing outpatient colonoscopy with biopsy. GI also recommended outpatient follow up in March to discuss timing of colonoscopy. Furthermore, Infectious disease was consulted, and recommended that the patient be treated with zosyn and flagyl due to sigmoid diverticulitis with microperforation and phlegmon formation. On day 3, the patient continue to spike elevated temperature, and reported 3 loose bowel movement overnight. Patient was advanced to clear liquid diet, and antibiotics were continued. Per surgery, the patient would need a repeat CT with PO contrast prior to discharge. On hospital day 4, repeat CT abdomen and pelvis was obtained, which revealed interval worsening inflammatory changes in known segmental acute sigmoid diverticulitis, and interval development of 3x8cm fluid collection anterior and superior to the sigmoid colon, and no micro perforation or abscess. No GI interventions indicated, per report. The patient was still experiencing diarrhea , and physical exam revealed positive tenderness to palpation of the lower left quadrant. However, the patient expressed the need to return to work related activities despite being in a medically guarded state. Patient subsequently elected to leave against the medical advice (AMA). Prior to leaving the hospital , the patient was educated about the risks associated with leaving AMA. Nonetheless, the patient decided to leave despite the possible poor outcomes and serious complications that were explained in detail to the patient. The patient ultimately discharged AMA to home in a guarded state. Patient has history of coronary artery disease, is status-post LAD stent in June 2017. Patient's most recent echo stress test revealed Ejection Fraction of 35-39%.Patient was continued on home meds, brilinta and aspirin. Patient also has a history of hyperlipidemia and hypertension, and was treated with home meds. On said day of discharge, the patient was normotensive. Of note, CT abdomen and pelvis also reported possible pulmonary nodule. Patient is a high-risk due to history of tobacco use. Complete cessation of tobacco use was strongly advised to the patient. Furthermore, the patient would benefit from follow-up as outpatient to obtain low resolution CT within 12 months. Moreover, CBC obtained revealed elevated MCV, consistent with the patient's reported history. Complete cessation of alcohol was strongly encouraged. Discharge Medications: Amoxicillin/Clavulanate 1 tab PO BID 14 days #28 - Rx Aspirin 81mg PO Daily - Rx Atorvastatin 80mg PO - Rx Lactobacillus Acidophilus 1 capsule PO BID - Rx Metoprolol Tartate 25mg PO BRKD - Rx Brilinta 90mg PO BID - Rx Patient seen and case discussed with Attending Physician Dr. Babar Mcclain PGY1 Discharge Exam - Head Exam Head Exam: ATRAUMATIC, NORMAL INSPECTION, NORMOCEPHALIC - Eye Exam Eye Exam: EOMI, Normal appearance - ENT Exam ENT Exam: Mucous Membranes Moist, Normal Exam - Neck Exam Neck exam: Full Rom, Normal Inspection - Respiratory Exam Respiratory Exam: NORMAL BREATHING PATTERN, UNREMARKABLE - Cardiovascular Exam Cardiovascular Exam: REGULAR RHYTHM. absent: Tachycardia - GI/Abdominal Exam GI & Abdominal Exam: Normal Bowel Sounds, Tenderness (left lower quadrant ). absent: Distended, Guarding - Extremities Exam Extremities exam: normal inspection - Back Exam Back exam: NORMAL INSPECTION - Neurological Exam Neurological exam: Alert, Normal Gait, Oriented x3 - Psychiatric Exam Psychiatric exam: Normal Affect, Normal Mood - Skin Skin Exam: Dry, Intact, Normal Color, Warm Discharge Plan - Discharge Medications Prescriptions: Amoxicillin/Clavulanate [Augmentin 875 MG-125 MG] 1 tab PO BID 14 Days #28 tab Lactobacillus Acidophilus [Acidophilus Lactobacilli] 1 each PO BID 14 Days #28 capsule - Follow Up Plan Condition: GUARDED Disposition: AGAINST MEDICAL ADVICE Patient education suggested?: Yes Additional Instructions: 1. Complete full course of antibiotics as prescribed. 2. Follow-up with primary care physician in 3-5 days 3. Follow-up with gastroenterology within 3-5 days 4. It is recommended to repeat colonoscopy in July once able to be off Brilinta, as per GI recommendations 5. Due to leaving against medical advice, it is extremely important to return to the ED if you experience persistence or worsening of your symptoms 6. Complete cessation of tobacco use is strongly advised 7. Imaging revealed an incidental pulmonary nodule. Please follow-up with primary care physician for low resolution CT of chest within 12 months given history of smoking Referrals: Jaqui Hall MD [Primary Care Provider] - <Chery Eckert - Last Filed: 03/03/18 19:53> Provider - Provider Date of Admission: 02/27/18 23:44 Attending physician: Chery Eckert DO Primary care physician: Jaqui Hall MD Hospital Course - Lab Results Lab Results: Micro Results 02/28/18 21:00 Stool C. difficile Antigen & Toxin A,B (M - Final Most Recent Lab Values WBC 9.9 10^3/ul (4.5-11.0) D 03/02/18 07:00 RBC 3.45 10^6/uL (3.5-6.1) L 03/02/18 07:00 Hgb 11.8 g/dL (14.0-18.0) L 03/02/18 07:00 Hct 35.3 % (42.0-52.0) L 03/02/18 07:00 MCV 102.3 fl (80.0-105.0) 03/02/18 07:00 MCH 34.2 pg (25.0-35.0) 03/02/18 07:00 MCHC 33.4 g/dl (31.0-37.0) 03/02/18 07:00 RDW 12.1 % (11.5-14.5) 03/02/18 07:00 Plt Count 213 10^3/uL (120.0-450.0) 03/02/18 07:00 MPV 9.5 fl (7.0-11.0) 03/02/18 07:00 Gran % 75.4 % (50.0-68.0) H 03/02/18 07:00 Lymph % (Auto) 17.7 % (22.0-35.0) L 03/02/18 07:00 [place] % (Auto) 5.3 % (1.0-6.0) 03/02/18 07:00 Eos % (Auto) 1.4 % (1.5-5.0) L 03/02/18 07:00 Baso % (Auto) 0.2 % (0.0-3.0) 03/02/18 07:00 Gran # 7.44 (1.4-6.5) H 03/02/18 07:00 Lymph # (Auto) 1.8 (1.2-3.4) 03/02/18 07:00 [place] # (Auto) 0.5 (0.1-0.6) 03/02/18 07:00 Eos # (Auto) 0.1 (0.0-0.7) 03/02/18 07:00 Baso # (Auto) 0.02 K/mm3 (0.0-2.0) 03/02/18 07:00 PT 12.9 SECONDS (9.4-12.5) H 02/27/18 22:01 INR 1.13 (0.93-1.08) H 02/27/18 22:01 APTT 27.1 Seconds (25.1-36.5) 02/27/18 22:01 pO2 35 mm/Hg (30-55) 02/27/18 22:01 VBG pH 7.38 (7.32-7.43) 02/27/18 22:01 VBG pCO2 44.0 (40-60) 02/27/18 22:01 VBG HCO3 26.0 mmol/l (21-28) 02/27/18 22:01 VBG Total CO2 27.4 mmol.L (22-28) 02/27/18 22:01 VBG O2 Sat (Calc) 73.2 % (40-65) H 02/27/18 22:01 VBG Base Excess 0.5 mmol/L (0.0-2.0) 02/27/18 22:01 VBG Potassium 3.2 mmol/L (3.6-5.2) L 02/27/18 22:01 Sodium 134.0 mmol/L (132-148) 02/27/18 22:01 Chloride 101.0 mmol/L (98-107) 02/27/18 22:01 Glucose 98 mg/dl (75-110) 02/27/18 22:01 Lactate 0.8 mmol/L (0.7-2.1) 02/27/18 22:01 FiO2 21.0 % 02/27/18 22:01 Sodium 143 mmol/L (132-148) 03/02/18 07:00 Potassium 3.7 mmol/L (3.6-5.0) 03/02/18 07:00 Chloride 107 mmol/L (98-107) 03/02/18 07:00 Carbon Dioxide 26 mmol/L (21-33) 03/02/18 07:00 Anion Gap 14 (10-20) 03/02/18 07:00 BUN 5 mg/dL (7-21) L 03/02/18 07:00 Creatinine 0.9 mg/dl (0.8-1.5) 03/02/18 07:00 Est GFR ( Amer) > 60 03/02/18 07:00 Est GFR (Non-Af Amer) > 60 03/02/18 07:00 Random Glucose 89 mg/dL (70-110) 03/02/18 07:00 Calcium 9.0 mg/dL (8.4-10.5) 03/02/18 07:00 Total Bilirubin 1.4 mg/dL (0.2-1.3) H 03/02/18 07:00 AST 30 U/L (17-59) 03/02/18 07:00 ALT 28 U/L (7-56) 03/02/18 07:00 Alkaline Phosphatase 79 U/L (38-126) 03/02/18 07:00 Total Protein 7.1 g/dL (5.8-8.3) 03/02/18 07:00 Albumin 3.7 g/dL (3.0-4.8) 03/02/18 07:00 Globulin 3.4 gm/dL 03/02/18 07:00 Albumin/Globulin Ratio 1.1 (1.1-1.8) 03/02/18 07:00 Lipase 53 U/L (23-300) 02/27/18 22:01 Venous Blood Potassium 3.2 mmol/L (3.6-5.2) L 02/27/18 22:01 Urine Color Yellow (YELLOW) 02/27/18 22:30 Urine Appearance Clear (CLEAR) 02/27/18 22:30 Urine pH 6.0 (4.7-8.0) 02/27/18 22:30 Ur Specific [place] 1.015 (1.005-1.035) 02/27/18 22:30 Urine Protein Negative mg/dL (<30 mg/dL) 02/27/18 22:30 Urine Glucose (UA) Negative mg/dL (NEGATIVE) 02/27/18 22:30 Urine Ketones Trace mg/dL (NEGATIVE) H 02/27/18 22:30 Urine Blood Negative (NEGATIVE) 02/27/18 22:30 Urine Nitrate Negative (NEGATIVE) 02/27/18 22:30 Urine Bilirubin Negative (NEGATIVE) 02/27/18 22:30 Urine Urobilinogen 0.2 E.U./dL (<1 E.U./dL) 02/27/18 22:30 Ur Leukocyte Esterase Negative Declan/uL (NEGATIVE) 02/27/18 22:30 HIV 1&2 Ag/Ab, 4th Gen Nonreactive (Nonreactive) 03/01/18 06:45 Attending/Attestation - Attestation I have personally seen and examined this patient.: Yes I have fully participated in the care of the patient.: Yes I have reviewed all pertinent clinical information, including history, physical exam and plan: Yes Notes (Text): Patient seen and examined by me at 09:20AM and again at 16:40 with resident 03/02. Please see progress note from same day. Case discussed with resident. Agree with above with following additions/corrections. Patient is a 43-year-old male with past medical history significant or hypertension, hyperlipidemia, coronary artery disease that presented to the emergency room with suprapubic and lower abdominal pain. Patient was found to have acute diverticulitis. Please see dictated H&P for further details. Patient was admitted with acute diverticulitis with microperforation/ extraluminal phlegmon. Patient was febrile and had leukocytosis. ID was consulted, surgery was consulted, and GI was consulted. Patient was placed on Zosyn. Abdominal pain improved. Patient as made NPO and diet was slowly advanced. Patient was maintained on IV fluids. Leukocytosis resolved. Fever resolved. C-diff was negative. Patient was still having diarrhea. Repeat CT abd/ pelvis was ordered per surgery. CT abd/pelvis 03/02/18 per radiologist showed interval worsening inflammatory changes in known segmental acute sigmoid diverticulitis; interval development of 3.0x1.8cm fluid collection anterior and superior to the sigmoid colon; no microperforation or abscess. Results were discussed with patient. Patient was advised that further work up and treatment was needed. Patient decided to sign out again medical advice. In the afternoon patient requested to sign out AGAINST MEDICAL ADVICE. This action is against my medical advice to the patient and the decision was made with informed refusal. The patient was told that further workup is necessary and a full explanation of the rationale was given. The risks of leaving were explained to the patient and include but are not limited to increased morbidity and mortality, , and worsening of known or unknown conditions. Patient was AAOX3 and was able to make this informed decision and understood the clinical situation and my explanation of the risks of leaving. The patient voluntarily accepted these risks and signed an AMA form documenting our conversation. The patient was given the Tpportunity ask questions and reconsider. The patient was encouraged to return to emergency room at any time for further care. He was advised to follow-up with her primary care doctor as soon as possible. ID was informed of patient signing out AMA and Augmentin RX was given to patient for 14 days. Physical exam: Gen: Awake and alert sitting up in bed in no acute distress HEENT: Normocephalic atraumatic. Extraocular muscles intact, pupils equal reactive. Oropharynx is pink and moist, no pharyngeal erythema or exudate appreciated. Neck is supple. Cardiovascular: Normal rhythm. Normal S1-S2. No murmurs, rubs, or gallops appreciated Pulmonary: Normal respiratory effort. No rhonchi, rales or wheezing appreciated. Gastrointestinal: Soft, positive mild tenderness lower abdomen, nondistended, positive bowel sounds all 4 quadrants, no guarding Musculoskeletal: Moves all extremities, no calf tenderness Central nervous system: AAO x 3. 5/5 muscle strength all extremities. CN 2-12 grossly intact Dermatologic: Skin warm and dry Please see chart for full details 03/03/18 19:53
== END 2018-03-02 17:56 | disposition left against medical advice (07) | DRG 872 ==
LOC: ED 21:30 → ERH 23:44 → 5RSO 02-28 01:14
PROVIDERS: ADMIT Hospitalist; ATTEND Hospitalist
DX: A41.9 Sepsis, unspecified organism (principal); K57.20 Diverticulitis of large intestine with perforation and abscess without bleeding; K76.0 Fatty (change of) liver, not elsewhere classified; I25.10 Atherosclerotic heart disease of native coronary artery without angina pectoris; E78.00 Pure hypercholesterolemia, unspecified; E78.5 Hyperlipidemia, unspecified; F12.90 Cannabis use, unspecified, uncomplicated; I10 Essential (primary) hypertension; I25.2 Old myocardial infarction; Z90.49 Acquired absence of other specified parts of digestive tract; Z95.5 Presence of coronary angioplasty implant and graft; R91.1 Solitary pulmonary nodule; F17.210 Nicotine dependence, cigarettes, uncomplicated